=== PATIENT | female | born 1985 | race Caucasian/White ===

== ENCOUNTER 2024-07-26 14:43 | Outpatient (AMB) | payer MEDICAID, SELFPAY ==
--- NOTE | 2024-07-26 14:46 | MHC.OFFVIS ---
Vital Signs 07/26/24 14:47 Height 5 ft 7 in Weight 137 lb 2.04 oz BMI 21.5 BP 99/58 L Blood Pressure Location Lt brachial Position Sitting Pulse 73 Pulse Source Pulse Oximeter Pulse Oximetry (%) 97 Oxygen Delivery Method Room Air Intake Visit Reasons: multiple joint pain Intake Note: Patient presents today as a new patient externally referred by her PCP for multiple joint pain. She states it's been 9 months, she states she has tried just about everything to deal with the pain. Allergies gluten Allergy (Mild, Verified 07/26/24 14:51) celiac disease Latex, Natural Rubber Allergy (Mild, Verified 07/26/24 14:51) Rash povidone-iodine [From Betadine] Allergy (Mild, Verified 07/26/24 14:51) swelling skin, hives wheat Allergy (Mild, Verified 07/26/24 14:51) celiac Medication List - Last Reconciled 07/26/24 by Yessica Brooks MD albuterol sulfate 90 mcg/actuation (Ventolin HFA) 2 puffs inhalation Q6H PRN gabapentin 100 mg PO TID triamcinolone acetonide 0.1% 1 appl topical DAILY HPI Comments Details: Patient is a 38-year-old female with history of celiac disease managed with gluten free diet and eczema who presents for evaluation of polyarthralgias. 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 She reports that over the past year and a half she has been noticing that her recovery post exercise has been longer. She would wake up with pain and stiffness in her back (really extending from the cervical spine all the way down to the sacroiliac region). The pain would sometimes wake her up in the middle of the night. This has not been associated with episodes of dactylitis or enthesitis. No nail changes. No history of psoriasis. No history of inflammatory bowel disease such as UC or Crohn's. In addition to her back pain she has been noticing overwhelming fatigue. She does note that when she exercises pain does improve but she feels that after the exercise when she is at rest the pain returns. In the morning she feels that she is so stiff that it takes her at least an hour to get up and going. Denies rashes, photosensitivity, alopecia, oral/nasal ulcers, sicca symptoms, lymphadenopathy, chest pain/shortness of breath, foamy urine, lower extremity edema, muscle weakness Also denies history of seizure, CVA, psychosis, history of kidney problems, history of cytopenias, history of VTE Has 2 children. No history of miscarriages. No history of preeclampsia FOR[facility] Medical History (Updated 07/26/24 @ 16:16 by Yessica Brooks MD) MICHELE positive Spondylarthritis Breast lump Acute severe exacerbation of moderate persistent allergic asthma COVID Basal cell carcinoma Lateral epicondylitis of right elbow Pain in right knee Lymphadenopathy Mass of neck Fatigue Foot pain Backache Low back pain Acne Eczema Celiac disease Asthma Allergic rhinitis Acute bronchitis Visual impairment Insomnia Hyperlipidemia Squamous cell carcinoma of skin Malignant melanoma Family History (Updated 07/25/24 @ 14:00 by Cristina Stein CMA) Mother Essential (primary) hypertension Hypercholesterolemia Kidney disease Hip pain, bilateral Father Disorder of thyroid gland Hip pain, bilateral FH: prostate carcinoma Social History (Updated 07/25/24 @ 14:01 by Cristina Stein CMA) Patient Tobacco Use Status: Never used Tobacco Review of Systems Const Details: Review of Systems Constitutional: Denies fever, chills, weight loss ENT: Denies vision changes, eye pain or eye redness, dental caries, dry mouth GI: Denies nausea, vomiting, diarrhea, abdominal pain, change in BM Pulm: Denies SOB, TIDWELL, hemoptysis, wheezing Cards: Denies chest pain, palpitations Skin: Denies Raynaud's, rash, nail changes, photosensitivity, 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 ?Gait normal. Constitutional Mucous membranes pink and moist patient alert and cooperative HEENT Conjunctiva and sclera clear. ?Pupils equal round and reactive to light. ?No lymphadenopathy. ?Normal dentition. Respiratory System Normal respiratory effort and able to speak in complete sentences. ?Clear to auscultation bilaterally. ?No crackles, rales, rhonchi, wheezes heard. Cardiac System Regular rate and rhythm. ?S1 and S2 heard no murmurs. ?Radial pulses intact bilaterally MSK No deformity, swelling, abnormalities noted to bilateral hands. ?No evidence of synovitis. ?Able to move all joints with full range of motion, without limitation. Hands:.??Normal pain-free range of motion without tenderness, swelling, increased warmth or erythema. 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 Wrists: Normal pain-free range of motion without tenderness, swelling, increased warmth or erythema. Elbows: Full range of motion without pain. No tenderness, weakness, swelling, increased warmth or erythema. Shoulders: Full range of motion without pain. No tenderness, weakness, swelling, increased warmth or erythema. Hips: Full range of motion without pain. Hip bursa:.??No tenderness. Knees:.???Normal pain-free range of motion without tenderness, swelling, increased warmth or erythema.?No effusion or crepitations Ankles:.??Normal pain-free range of motion without tenderness, swelling, increased warmth or erythema. Feet:.??Normal pain-free range of motion without tenderness, swelling, increased warmth or erythema. Tender points:??No tenderness to digital palpation at the occiput, trapezius, second rib, lateral epicondyle, knees, greater trochanter bilaterally, and left gluteal. Yoav's test 10 -> 14 Normal wall to occiput test Skin Normal nail fold capillaries Eczematous patch noted over the lateral left elbow Results Reviewed Results Reviewed: Results reviewed in the scanned document. 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 Of note she did check an HLA B27 with her primary and this was negative, however HLA B27 positivity is not universal in axial spondyloarthritis. Also against this would be the normal ESR and CRP. We will give her a trial of naproxen 500 mg b.i.d. for 6 weeks and we will see her back in 4 weeks. We will also check SI joint x-rays and an MRI of her SI joints. Given her history of celiac disease I would think that it is possible that she has another autoimmune disease. We will also send full lab workup. To see patient again in 4 weeks. (2) MICHELE positive: Code(s): R76.8 - Other specified abnormal immunological findings in serum Category: Medical Plan: #Positive MICHELE The presence of antinuclear antibodies (MICHELE) is mainly associated with connective tissue diseases (CTD). ?However, their presence is found in healthy people especially in women and patients >65. ?In healthy individuals, the frequency of MICHELE has been shown to be 31.7% of individuals at 1:40 serum dilution, 13.3% at 1:80, 5.0% at 1:160, and 3.3% at 1:320 (2). Some drugs and xenobiotics are also important for the development of MICHELE (hydralazine, hydrochlorothiazide, minocycline, terbinafine, ciprofloxacin, furosemide, omeprazole). Moreover, the deficiency of vitamin D in the body of patients correlates with occurrence of these antibodies (1). At this time there is low suspicion for a connective tissue disease. ? 1. Sandra?yu Lee, Yaniv Velez, Praneeth Kuhn. Antinuclear antibodies in healthy people and non-rheumatic diseases - diagnostic and clinical implications. Reumatologia. 2018;56(4):243-248. doi: 10.5114/reum.2018.42084. Epub 2017Jun 04. PMID: [id number]; PMCID: [id number]. 2. Joseph EM, Anushka TE, Taisha JS, Chang B, Ruben R, Magali MJ, Helder T, Fili JA, Demian JR, Naomie RG, Azam RN, Tony JS, Hans NF, Francesco RJ, Velvet Y, Taylor A, Ruperto MR, Sharif TSANG. Range of antinuclear antibodies in healthy individuals. Arthritis Rheum. 1996;40(9):1601-11. doi: 10.1002/art.1348165854. PMID: 7874235. Plan I spent 45 minutes reviewing the record and labs, seeing the patient, discussing the treatment plan and documenting in the medical record ? For next visit: Review labs and imaging Orders: Orders C Reactive Protein Today M19.90 - Unspecified osteoarthritis, unspecified site, M47.819 - Spondylosis without myelopathy or radiculopathy, site unspecified Vitamin D 25-OH (D2 and D3) Today M19.90 - Unspecified osteoarthritis, unspecified site, M47.819 - Spondylosis without myelopathy or radiculopathy, site unspecified Immunoglobulins,IgG IgA IgM Today M1.90 - Unspecified osteoarthritis, unspecified site, M47.819 - Spondylosis without myelopathy or radiculopathy, site unspecified Complement C4 Today M19.90 - Unspecified osteoarthritis, unspecified site, M47.819 - Spondylosis without myelopathy or radiculopathy, site unspecified MICHELE Reflex Titer and Pattern Today M1. - Unspecified osteoarthritis, unspecified site, M47.819 - Spondylosis without myelopathy or radiculopathy, site unspecified UA w Microscopic Today M1. - Unspecified osteoarthritis, unspecified site, M47.819 - Spondylosis without myelopathy or radiculopathy, site unspecified Lyme IgG/IgM w/reflex to WB Today M19.90 - Unspecified osteoarthritis, unspecified site, M47.819 - Spondylosis without myelopathy or radiculopathy, site unspecified Thyroid Peroxidase Antibodies Today M1.90 - Unspecified osteoarthritis, unspecified site, M47.819 - Spondylosis without myelopathy or radiculopathy, site unspecified Rheumatoid Factor Today . - Unspecified osteoarthritis, unspecified site, M47.819 - Spondylosis without myelopathy or radiculopathy, site unspecified Creatine Kinase Total Today M1.90 - Unspecified osteoarthritis, unspecified site, M47.819 - Spondylosis without myelopathy or radiculopathy, site unspecified XR sacroiliac joint min 3V Today M1.90 - Unspecified osteoarthritis, unspecified site, M47.819 - Spondylosis without myelopathy or radiculopathy, site unspecified XR hand wrist LT Today M1. - Unspecified osteoarthritis, unspecified site, M47.819 - Spondylosis without myelopathy or radiculopathy, site unspecified MR pelvis wo con Today M1.90 - Unspecified osteoarthritis, unspecified site, M47.819 - Spondylosis without myelopathy or radiculopathy, site unspecified HLA B27 Today M1.90 - Unspecified osteoarthritis, unspecified site, M47.819 - Spondylosis without myelopathy or radiculopathy, site unspecified Beta-2 Glycoprotein Antibody Today - Unspecified osteoarthritis, unspecified site, M47.819 - Spondylosis without myelopathy or radiculopathy, site unspecified Lupus Anticoagulant Panel Today . - Unspecified osteoarthritis, unspecified site, M47.819 - Spondylosis without myelopathy or radiculopathy, site unspecified Endomysial IgA rflx Titer Today - Unspecified osteoarthritis, unspecified site, M47.819 - Spondylosis without myelopathy or radiculopathy, site unspecified Transglutaminase Ab IgG Today - Unspecified osteoarthritis, unspecified site, M47.819 - Spondylosis without myelopathy or radiculopathy, site unspecified Complete Blood Count Auto Diff Today - Unspecified osteoarthritis, unspecified site, M47.819 - Spondylosis without myelopathy or radiculopathy, site unspecified Comprehensive Met. Panel Today - Unspecified osteoarthritis, unspecified site, M47.819 - Spondylosis without myelopathy or radiculopathy, site unspecified Erythrocyte Sedimentation Rate Today . - Unspecified osteoarthritis, unspecified site, M47.819 - Spondylosis without myelopathy or radiculopathy, site unspecified Protein Electrophoresis, Serum Today - Unspecified osteoarthritis, unspecified site, M47.819 - Spondylosis without myelopathy or radiculopathy, site unspecified Thyroid Stimulating Hormone Today . - Unspecified osteoarthritis, unspecified site, M47.819 - Spondylosis without myelopathy or radiculopathy, site unspecified Complement C3 Today - Unspecified osteoarthritis, unspecified site, M47.819 - Spondylosis without myelopathy or radiculopathy, site unspecified Anti DNA DS Antibody Today - Unspecified osteoarthritis, unspecified site, M47.819 - Spondylosis without myelopathy or radiculopathy, site unspecified Anti Extractable Nuclear Ag Today M19.90 - Unspecified osteoarthritis, unspecified site, M47.819 - Spondylosis without myelopathy or radiculopathy, site unspecified Thyroglobulin Antibodies Today M19.90 - Unspecified osteoarthritis, unspecified site, M47.819 - Spondylosis without myelopathy or radiculopathy, site unspecified MSA Panel 11 Myositis Spec Abs Today M19.90 - Unspecified osteoarthritis, unspecified site, M47.819 - Spondylosis without myelopathy or radiculopathy, site unspecified Cyclic Citrullinated Peptide Today M19.90 - Unspecified osteoarthritis, unspecified site, M47.819 - Spondylosis without myelopathy or radiculopathy, site unspecified Aldolase Today M19.90 - Unspecified osteoarthritis, unspecified site, M47.819 - Spondylosis without myelopathy or radiculopathy, site unspecified XR hand wrist RT Today M19.90 - Unspecified osteoarthritis, unspecified site, M47.819 - Spondylosis without myelopathy or radiculopathy, site unspecified Cardiolipin Antibodies Today M19.90 - Unspecified osteoarthritis, unspecified site, M47.819 - Spondylosis without myelopathy or radiculopathy, site unspecified Medications: New naproxen 500 mg PO BID 6 weeks 84 tabs 0RF M47.819 - Spondylosis without myelopathy or radiculopathy, site unspecified Coding Level of Care Code New Pt Level 4 (18286) Complex EM visit Add On G2211 Diagnoses Spondylarthritis M47.819 MICHELE positive R76.8
[2024-07-26 14:47] VITALS: BP 99/58; PULSE 73; O2SAT 97; BMI 21.5
== END 2024-07-26 15:58 | disposition home or self-care (01) ==
PROVIDERS: PCP Internal Medicine; Visit Provider Student in an Organized Health Care Education/Training Program
DX: M47.819 Spondylosis without myelopathy or radiculopathy, site unspecified (principal); R76.8 Other specified abnormal immunological findings in serum
CPT/HCPCS: 99204

== ENCOUNTER → 2024-07-26 14:43 | Outpatient (BNVA) | payer MEDICAID, SELFPAY | PROVIDERS: PCP Internal Medicine; Visit Provider Student in an Organized Health Care Education/Training Program | DX: R76.8 Other specified abnormal immunological findings in serum (principal); M47.819 Spondylosis without myelopathy or radiculopathy, site unspecified | CPT/HCPCS: 99202 ==

== ENCOUNTER 2024-08-07 18:39 | Outpatient (REF) | payer MEDICAID, SELFPAY ==
--- NOTE | ~2024-08-07 | MR_ITS ---
EXAMINATION: MR PELVIS WITH CONTRAST CLINICAL INFORMATION: Unspecified osteoarthritis. Patient reports back pain. COMPARISON: None available. TECHNIQUE: MRI in a 1.5 Marni scanner without contrast. FINDINGS: Bone/joints: Bilateral femoral heads are well-seated in the acetabulum. No evidence of acute fracture, avascular necrosis or stress reaction in the proximal femurs. SI joint spaces are maintained. No evidence of significant edema or cystic changes. No joint effusion. No erosive changes identified. No evidence of significant sacral edema to suggest stress or insufficiency injury. No focal fracture plane is seen. No acute fracture is otherwise identified in the visualized pelvis. Symphysis pubis is intact. There is a round 0.9 cm lesion in the S1 vertebral body. Margins are well-defined. Lesion is bright on T2, with punctate foci of low signal within it. Low T1 signal. No surrounding marrow edema. This overall has a nonaggressive appearance. Differential considerations include chondroid lesion. Marrow signal otherwise is within normal limits. Limited evaluation of the partially visualized lower lumbar spine. The vertebral body alignment is maintained. Disc spaces are maintained. Muscle/tendons: Tendons are intact. No significant muscle edema or measurable tear is identified. Additional findings: No lymphadenopathy seen in the pelvis or the groin. Urinary bladder appears unremarkable. Anteverted uterus. Within normal limits. No free fluid. MR/MR pelvis wo con IMPRESSION: 1. No evidence of acute osseous abnormality. No evidence of fracture, avascular necrosis or stress reaction. 2. Bilateral SI joints appear within normal limits. 3. A 0.9 cm lesion in the S1 vertebral body, with imaging characteristics as detailed above. This overall has a nonaggressive appearance. Differential considerations include a chondroid lesion. Correlate with x-ray. Follow-up imaging for reassessment as clinically indicated. Study is assigned for dictation on September 07, [address] Brooks at 1:10 PM on September 07, 2024 Electronically signed by: Andrew Blank MD 09/07/2024 01:14 PM [facility]
== END 2024-08-07 18:40 | disposition home or self-care (01) ==
LOC: HO.MRI 18:39
PROVIDERS: PCP Internal Medicine; Visit Provider Student in an Organized Health Care Education/Training Program
DX: M19.90 Unspecified osteoarthritis, unspecified site (principal); M47.819 Spondylosis without myelopathy or radiculopathy, site unspecified
CPT/HCPCS: 72195

== ENCOUNTER 2024-08-10 12:42 | Outpatient (REF) | payer MEDICAID, SELFPAY ==
[2024-08-10 13:21] LABS: MANUAL DIFF FLAG NO
[2024-08-10 13:52] LABS: Appearance Urine Turbid; Color Urine Yellow; Glucose Urine UA Negative (Negative); Leukocyte Esterase Urine Moderate (2+) (Negative); Nitrite Urine Negative (Negative); UMIC TRIGGER UA YES; Urine Blood Trace (Negative); Urine Ketones Negative (Negative); Urine Protein Negative (Neg-Trace)
[2024-08-10 14:03] LABS: Bacteria Urine 1+ (None Seen); Hyaline Casts Urine 0-2 /LPF (0-2); Other Crystals Urine Present; RBC Urine 0-2 /HPF (0-2); WBC Urine 0-5 /HPF (0-5)
[2024-08-10 14:21] LABS: Basophils Absolute Auto 0.1 X10*3/uL (0.0-0.2); Basophils Percent Auto 0.9 % (0-2); Eosinophils Absolute Auto 0.2 X10*3/uL (0.0-0.4); Eosinophils Percent Auto 1.7 % (0-4); Hematocrit 43.7 % (37.0-47.0); Imm Gran Abs Auto 0.01 X10*3/uL (0.00-0.03); Imm Gran Pct Auto 0.1 % (0.0-0.4); Lymphocytes Absolute Auto 2.1 X10*3/uL (1.2-4.9); Lymphocytes Percent Auto 24.4 % (20-40); Mean Corpuscular HGB Conc 34.3 g/dl (31.0-35.0); Mean Corpuscular Hemoglobin 30.1 pg (27.0-33.0); Mean Corpuscular Volume 87.8 fL (80.0-98.0); Mean Platelet Volume 10.1 fL (9.4-12.3); Monocytes Absolute Auto 0.5 X10*3/uL (0.1-1.2); Monocytes Percent Auto 6.1 % (2-11); Neutrophils Absolute Auto 5.7 x10*3/uL (2.0-8.3); Neutrophils Percent Auto 66.8 % (45-73); Platelet Count 204 X10*3/uL (160-400); Red Blood Count 4.98 X10*6/uL (4.20-5.50); Red Cell Distribution Width 11.9 % (11.0-16.0); White Blood Count 8.6 X10*3/uL (4.8-10.8)
[2024-08-10 14:32] LABS: Alanine Aminotransferase 30 U/L (0-31); Alkaline Phosphatase 66 U/L (39-117); Anion Gap 12 (12-20); Aspartate Amino Transferase 27 U/L (5-31); Bilirubin Total 0.3 mg/dL (0.0-1.0); Blood Urea Nitrogen 21 mg/dL (9-16); C Reactive Protein < 0.10 mg/dL (< or = 0.50); Calcium 10.2 mg/dL (8.4-10.2); Carbon Dioxide 29 mmol/L (22-29); Chloride 103 mmol/L (96-108); Estimated Glomerular Filt Rate > 60; Glucose Random 98 mg/dL (60-115); Potassium 3.9 mmol/L (3.3-5.1); Sodium 140 mmol/L (135-145); Total Protein 7.8 g/dL (6.5-8.0)
[2024-08-10 14:38] LABS: Rheumatoid Factor < 13.0 IU/mL (<15.0)
[2024-08-10 14:45] LABS: Thyroid Stimulating Hormone 1.18 uIU/mL (0.32-4.0)
[2024-08-10 14:57] LABS: Erythrocyte Sedimentation Rate 2 MM/HR (0-20)
[2024-08-11 10:48] LABS: Complement C3 109 mg/dL (83-193); IgA 125 mg/dL (47-310); IgG 880 mg/dL (600-1640); IgM 158 mg/dL (50-300)
[2024-08-11 11:29] LABS: Thyroglobulin Antibodies <1 IU/mL (< or = 1); Thyroid Peroxidase Antibodies 1 IU/mL (<9)
[2024-08-11 16:23] LABS: Lyme Abs Screen <0.90 index
[2024-08-11 20:24] LABS: Transglutaminase Ab IgG <1.0 U/mL
[2024-08-12 09:43] LABS: Prot Elec - Albumin 5.2 g/dL (3.8-4.8); Prot Elec - Alpha1 0.3 g/dL (0.2-0.3); Prot Elec - Alpha2 0.6 g/dL (0.5-0.9); Prot Elec - Beta 1 0.4 g/dL (0.4-0.6); Prot Elec - Beta 2 0.3 g/dL (0.2-0.5); Prot Elec - Gamma 0.8 g/dL (0.8-1.7); Prot Elec - Total Protein 7.5 g/dL (6.1-8.1)
[2024-08-12 21:32] LABS: Anti DNA DS Antibody <1 IU/mL; SM/Ribonucleoprotein Ab <1.0 NEG AI (<1.0 NEG); Smith Protein <1.0 NEG AI (<1.0 NEG)
[2024-08-12 22:28] LABS: Cyclic Citrullinated Peptide <16 UNITS
[2024-08-13 23:38] LABS: Endomysial IgA Antibody Negative (Negative)
[2024-08-14 13:39] LABS: Hexagonal Phase Neutralization Negative (Negative); PTT (LAC) Screen 43 sec (<=40)
[2024-08-15 10:43] LABS: Cardiolipin IgG Ab <2.0 GPL-U/mL; Cardiolipin IgM Ab <2.0 MPL-U/mL
[2024-08-15 14:43] LABS: Vitamin D 25-OH, D2 5 ng/mL; Vitamin D 25-OH, D3 33 ng/mL; Vitamin D 25-OH, Total 38 ng/mL (30-100)
[2024-08-16 02:19] LABS: Aldolase 5.1 U/L (<=8.1)
[2024-08-16 12:38] LABS: HLA B27 Negative (Negative)
[2024-08-16 14:58] LABS: ANA Pattern 2 Nuclear, Homogeneous; ANA Titer 2 1:40 titer; Anti Nuclear Antibody Pattern Nuclear, Nucleolar; Anti Nuclear Antibody Screen POSITIVE (NEGATIVE)
[2024-08-17 17:19] LABS: Beta-2 Glycoprotein IgA <2.0 U/mL (<20.0); Beta-2 Glycoprotein IgG <2.0 U/mL (<20.0); Beta-2 Glycoprotein IgM <2.0 U/mL (<20.0)
[2024-08-18 02:53] LABS: Ej Ab <11 SI (<11); Jo-1 Ab <11 SI (<11); MDA5 Ab <11 SI (<11); Mi-2 alpha Ab <11 SI (<11); Mi-2 beta Ab <11 SI (<11); NXP-2 (MJ) Ab <11 SI (<11); Oj Ab <11 SI (<11); Pl-12 Ab <11 SI (<11); Pl-7 Ab <11 SI (<11); SRP Ab <11 SI (<11); TIF1 gamma Ab <11 SI (<11)
== END 2024-08-10 12:43 | disposition home or self-care (01) ==
LOC: HO.LAB 12:42
PROVIDERS: Visit Provider Student in an Organized Health Care Education/Training Program
DX: M19.90 Unspecified osteoarthritis, unspecified site (principal); M47.819 Spondylosis without myelopathy or radiculopathy, site unspecified
CPT/HCPCS: 36415; 72202; 73110; 73130; 80053; 81001; 82085; 82306; 82550; 82784; 84165; 84182; 84443; 85025; 85597; 85598; 85613; 85652; 85730; 86038; 86039; 86140; 86146; 86147; 86160; 86200; 86225; 86231; 86235; 86364; 86376; 86431; 86617; 86618; 86800; 86812

== ENCOUNTER 2024-09-07 11:46 | Outpatient (AMB) | payer MEDICAID, SELFPAY ==
[2024-09-07 11:49] VITALS: BP 98/58; PULSE 72; BMI 21.4
--- NOTE | 2024-09-07 11:49 | A.OFFVIS_ITS ---
Vital Signs 09/07/24 11:49 Height 5 ft 7 in Weight 136 lb 14.513 oz BMI 21.4 BP 98/58 L Blood Pressure Location Rt brachial Position Sitting Pulse 72 Pulse Source Pulse Oximeter Intake Visit Reasons: multiple joint pain/CM Intake Note: Patient present today for multiple joint pain. [employer] Officer Required: No Accompanied by: Self / Same As Patient Allergies gluten Allergy (Mild, Verified 07/26/24 14:51) celiac disease Latex, Natural Rubber Allergy (Mild, Verified 07/26/24 14:51) Rash povidone-iodine [From Betadine] Allergy (Mild, Verified 07/26/24 14:51) swelling skin, hives wheat Allergy (Mild, Verified 07/26/24 14:51) celiac Medication List - Last Reconciled 09/07/24 by Yessica Brooks MD albuterol sulfate 90 mcg/actuation (Ventolin HFA) 2 puffs inhalation Q6H PRN gabapentin 300 mg PO TID naproxen 500 mg PO BID 6 weeks triamcinolone acetonide 0.1% 1 appl topical DAILY HPI Comments Details: Patient is a 38-year-old female with history of celiac disease managed with gluten free diet and eczema who presents for follow up Interval History: Patient initially seen 08/10/2024 by me. At that time she was presenting for evaluation of polyarthralgias specifically back pain. 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 and sent to do blood work and imaging. Blood work including ESR/CRP, HLA B27, x-rays and MRI were unremarkable for evidence of inflammation Today patient reports feeling lousy. The naproxen helped to ?take the edge off? however she persisted in her pain. Continues to complain of whole-body pain but specifically her back pain. 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 She reports that over the past year and a half she has been noticing that her recovery post exercise has been longer. She would wake up with pain and stiffness in her back (really extending from the cervical spine all the way down to the sacroiliac region). The pain would sometimes wake her up in the middle of the night. This has not been associated with episodes of dactylitis or enthesitis. No nail changes. No history of psoriasis. No history of inflammatory bowel disease such as UC or Crohn's. In addition to her back pain she has been noticing overwhelming fatigue. She does note that when she exercises pain does improve but she feels that after the exercise when she is at rest the pain returns. In the morning she feels that she is so stiff that it takes her at least an hour to get up and going. Denies rashes, photosensitivity, alopecia, oral/nasal ulcers, sicca symptoms, lymphadenopathy, chest pain/shortness of breath, foamy urine, lower extremity edema, muscle weakness Also denies history of seizure, CVA, psychosis, history of kidney problems, history of cytopenias, history of VTE Has 2 children. No history of miscarriages. No history of preeclampsia Working Diagnosis: Fibromyalgia Current Rheumatology Medication(s): Naproxen 500mg bid Gabapentin 300mg nightly [facility] Medical History (Updated 09/07/24 @ 14:06 by Yessica Brooks MD) Sacral lesion Greater trochanteric bursitis of both hips Fibromyalgia MICHELE positive Breast lump Acute severe exacerbation of moderate persistent allergic asthma COVID Basal cell carcinoma Lateral epicondylitis of right elbow Pain in right knee Lymphadenopathy Mass of neck Fatigue Foot pain Backache Low back pain Acne Eczema Celiac disease Asthma Allergic rhinitis Acute bronchitis Visual impairment Insomnia Hyperlipidemia Squamous cell carcinoma of skin Malignant melanoma Family History Mother Essential (primary) hypertension Hypercholesterolemia Kidney disease Hip pain, bilateral Father Disorder of thyroid gland Hip pain, bilateral FH: prostate carcinoma Social History Patient Tobacco Use Status: Never used Tobacco Review of Systems Const Details: Review of Systems Constitutional: Denies fever, chills, weight loss ENT: Denies vision changes, eye pain or eye redness, dental caries, dry mouth GI: Denies nausea, vomiting, diarrhea, abdominal pain, change in BM Pulm: Denies SOB, TIDWELL, hemoptysis, wheezing Cards: Denies chest pain, palpitations Skin: Denies Raynaud's, rash, nail changes, photosensitivity, [employer] ASSOCIATE: Denies headaches, weakness, paresthesias, recurrent falls MSK: as per HPI All other systems reviewed and are unremarkable except noted above Physical Exam Vital Signs: Last Vital Signs Pulse 72 09/07/24 11:49 BP 98/58 L 09/07/24 11:49 BMI result Body Mass Index 21.4 Physical Examination Patient well appearing and in no apparent painful distress Able to rise from chair without support. ?Gait normal. Constitutional Mucous membranes pink and moist patient alert and cooperative HEENT Conjunctiva and sclera clear. ?Pupils equal round and reactive to light. ?No lymphadenopathy. ?Normal dentition. Respiratory System Normal respiratory effort and able to speak in complete sentences. ?Clear to auscultation bilaterally. ?No crackles, rales, rhonchi, wheezes heard. Cardiac System Regular rate and rhythm. ?S1 and S2 heard no murmurs. ?Radial pulses intact bilaterally MSK No deformity, swelling, abnormalities noted to bilateral hands. ?No evidence of synovitis. ?Able to move all joints with full range of motion, without limitation. Hands:.??Normal pain-free range of motion without tenderness, swelling, increased warmth or erythema. Able to make a full fist and has a good self pay specialist strength. Wrists: Normal pain-free range of motion without tenderness, swelling, increased warmth or erythema. Elbows: Full range of motion without pain. No tenderness, weakness, swelling, increased warmth or erythema. Shoulders: Full range of motion without pain. No tenderness, weakness, swelling, increased warmth or erythema. Hips: Full range of motion without pain. Hip bursa:.??Bilateral tenderness to palpation Knees:.???Normal pain-free range of motion without tenderness, swelling, increased warmth or erythema.?No effusion or crepitations Ankles:.??Normal pain-free range of motion without tenderness, swelling, increased warmth or erythema. Feet:.??Normal pain-free range of motion without tenderness, swelling, increased warmth or erythema. Tender points:??Tenderness to palpation of the bilateral trapezius muscles, anterior chest, bilateral hip bursa. Skin No rash Office Procedures AMB Joint Injection/Aspiration Joint Injection/Aspiration Details: Procedure was explained to the patient and consent was obtained. ? The area of interest was identified and confirmed with patient. ?This was subsequently cleaned with chlorhexidine x3. ? The area was then anesthetized using ethyl chloride spray. 40 mg Kenalog with 1 cc 1% lidocaine was injected without issue. ?Minimal to no bleeding. ?Patient tolerated procedure. Primary Site: other (right greater trochanteric bursa) Prep: site was prepped using aseptic technique and ethochloride spray was applied Injected: 40 mg of, Kenalog, with 1 mL of and 1% plain lidocaine Approach Used: other Procedure: The patient tolerated the procedure well Coding 04961 - Glenohumeral/Tronchanteric Bursa/Intraarticular Procedure code (CPT) selection complete AMB Joint Injection/Aspiration Joint Injection/Aspiration Details: Procedure was explained to the patient and consent was obtained. ? The area of interest was identified and confirmed with patient. ?This was subsequently cleaned with chlorhexidine x3. ? The area was then anesthetized using ethyl chloride spray. 40 mg Kenalog with 1 cc 1% lidocaine was injected without issue. ?Minimal to no bleeding. ?Patient tolerated procedure. Primary Site: other (left greater trochanteric bursa) Prep: site was prepped using aseptic technique and site was prepped using sterile technique Injected: 40 mg of, Kenalog, with 1 mL of and 1% plain lidocaine Approach Used: other Procedure: The patient tolerated the procedure well Coding 69693 - Glenohumeral/Tronchanteric Bursa/Intraarticular Procedure code (CPT) selection complete Office Meds Kenalog 40 mg/mL suspension for injection Performing Provider: Yessica Brooks MD Performing Location: [facility] [place] Rheumatology Administered by: Yessica Brooks MD on 09/07/24 14:08 Dose Route Admin Location Dispensed Lot Number Expiration Date [facility] [employer] 40 mg intra-articular right greater trochanter 1 mL [id number] 04/04/26 [address]-0 [employer] lidocaine (PF) 10 mg/mL (1 %) injection solution Performing Provider: Yessica Brooks MD Performing Location: [facility] [place] Rheumatology Administered by: Yessica Brooks MD on 09/07/24 14:08 Dose Route Admin Location Dispensed Lot Number Expiration Date [facility] [employer] 10 mg Infiltration right greater trochanter 2 mL [id number] 01/03/27 28994-136-21 [facility] Kenalog 40 mg/mL suspension for injection Performing Provider: Yessica Brooks MD Performing Location: [facility] [place] Rheumatology Administered by: Yessica Brooks MD on 09/07/24 14:08 Dose Route Admin Location Dispensed Lot Number Expiration Date [facility] [employer] 40 mg intrabursal left greater trochanter 1 mL [id number] 04/04/26 [address]-7 [employer] lidocaine (PF) 10 mg/mL (1 %) injection solution Performing Provider: Yessica Brooks MD Performing Location: [facility] [place] Rheumatology Administered by: Yessica Brooks MD on 09/07/24 14:08 Dose Route Admin Location Dispensed Lot Number Expiration Date [facility] [employer] 10 mg Infiltration left greater trochanter 2 mL [id number] 01/03/27 15902-167-98 [facility] Results Reviewed Results Reviewed: Laboratory Tests 08/10/24 13:15 WBC 8.6 RBC 4.98 Hgb 15.0 Hct 43.7 Plt Count 204 ESR 2 Sodium 140 Potassium 3.9 Chloride 103 Carbon Dioxide 29 BUN 21 H Creatinine 0.74 AST 27 ALT 30 Alkaline Phosphatase 66 Total Creatine Kinase 142 H C-Reactive Protein < 0.10 25-OH Vitamin D Total 38 TSH 1.18 IgG Total 880 IgA Total 125 IgM 158 Rheumatoid Factor < 13.0 Cycl Citrul Peptide IgG <16 MICHELE Screen POSITIVE A MICHELE Titer 1:80 H MICHELE Pattern Nuclear, Nucleolar A TREVOR-1 Antibody <11 EJ Antibody <11 OJ Antibody <11 Mi-2-Alpha Ab <11 Mi-2-Beta Ab <11 PL-7 Antibody <11 PL-12 Antibody <11 SRP Ab <11 MDA5 Ab <11 Myos P155/140 TIF1-g Ab <11 Sm (Rodriguez) Antibody <1.0 NEG SM/FASHION MODEL IgG Antibody <1.0 NEG Double Strand DNA Ab <1 Beta-2-GPI IgG Ab <2.0 Beta-2-GPI IgA Ab <2.0 Beta-2-GPI IgM Ab <2.0 Endomysial IgA Ab Negative Tiss Transglutamin IgG <1.0 Thyroglobulin Antibody <1 Thyroid Peroxidase Ab 1 Anti-Cardiolipin IgG Ab <2.0 Anti-Cardiolipin IgM Ab <2.0 Complement C3 109 Complement C4 18 HLA-B27 Negative Lyme Screen IgG & IgM <0.90 MRI Pelvis 08/07/24 IMPRESSION: 1. No evidence of acute osseous abnormality. No evidence of fracture, avascular necrosis or stress reaction. 2. Bilateral SI joints appear within normal limits. 3. A 0.9 cm lesion in the S1 vertebral body, with imaging characteristics as detailed above. This overall has a nonaggressive appearance. Differential considerations include a chondroid lesion. Correlate with x-ray. Follow-up imaging for reassessment as clinically indicated. Bilateral Hand/Wrist XR 08/10/24 (My read) No evidence of erosions, joint space narrowing or chondrocalcinosis SI Joint XR 08/10/24 (My read) No evidence of erosions or joint space narrowing Assessment & Plan Assessment & Plan (1) Fibromyalgia: Code(s): M79.7 - Fibromyalgia Category: Medical Plan: #Fibromyalgia Patient presented with polyarthralgias. Evaluation did not reveal an underlying autoimmune cause with normal ESR/CRP, negative myositis panel, negative HLA B27, normal APS labs While she does not have the traditional tender points, she does meet the ACR preliminary diagnostic criteria for fibromyalgia (1) - Widespread pain index >7 and somatic score> 5 Plan Increase gabapentin 300mg tid Stop naproxen Gave Fibromyalgia pamphlet Discussed non pharmacologic management including stretches and regular exercise RTC 6 months 1. Ayaka F, Rima DJ, Vipin MA, Toan DL, H?mele W, Tete RS, Estefani P, Magno , Magno IJ, Chava MEGHANN. Fibromyalgia criteria and severity scales for clinical and epidemiological studies: a modification of the ACR Preliminary Diagnostic Criteria for Fibromyalgia. J Rheumatol. 2011 Lucas;38(6):1113-22. doi: 10.3899/[id number]. Ep2010Nov 05. PMID: [id number]. (2) Greater trochanteric bursitis of both hips: Code(s): M70.61 - Trochanteric bursitis, right hip; M70.62 - Trochanteric bursitis, left hip Category: Medical Plan: #Bilateral trochanteric bursitis S/p cortisol injections bilateral (3) Sacral lesion: Code(s): M53.3 - Sacrococcygeal disorders, not elsewhere classified Category: Medical Plan: #New sacral lesion on MRI Discussed with radiologist at [facility]: benign appearing. Can follow up with CT. No evidence of bone marrow edema Discussed with patient, recommend follow up with primary for further imaging evaluation Plan I spent 40 minutes reviewing the record and labs, seeing the patient, discussing the treatment plan, discussing MRI with [facility] Dr. Baweja and documenting in the medical record ? Orders: Orders AMB Joint Injection/Aspiration Today M70.61 - Trochanteric bursitis, right hip, M70.62 - Trochanteric bursitis, left hip AMB Joint Injection/Aspiration Today M53.3 - Sacrococcygeal disorders, not elsewhere classified, M70.61 - Trochanteric bursitis, right hip, M70.62 - Trochanteric bursitis, left hip Medications: New gabapentin 300 mg PO TID 90 days 270 caps 1RF M79.7 - Fibromyalgia Coding Level of Care Code New Pt Level 5 (78590) Diagnoses Fibromyalgia M79.7 Greater trochanteric bursitis of both hips M70.61; M70.62 Sacral lesion M53.3 CPT Codes Coding - Joint 7: 39478 - Glenohumeral/Tronchanteric Bursa/Intraarticular ([id number]) Coding - Joint 7: 72566 - Glenohumeral/Tronchanteric Bursa/Intraarticular ([id number])
--- OUTSIDE RECORDS SUMMARY | 2024-09-13 18:18 | XMS_ITS | Data Portability ---
Author Organization [facility], Main Office Address [address] [place] [address] Care Team Providers Care Dukey Rider Name Role Phone GRACE ENGLE Primary Care Provider DAVON ABARCA Referring Provider [phone] [facility] (DERMATOLOGY) Derm atologist ISABELA REBOLLEDO Construction Rep [facility] Orthopedic Surgeon EVELIN RICH Referring Provider PAOLA LORENZANA Referring Provider GASPER PARNELL Referring Provider [phone] MELISSA MILLER Construction Rep Assessment Encounter Date Assessment Date Assessment LastModified by Organization Details LastModified Time 08/16/2024 08/16/2024 This service was provided using telemedicine. Patient consented to video & audio visit Patient was located in the [facility]. Provider was located in the office. No other persons participated in the telemedicine visit except for the patient unless otherwise indicated here. {{}} Total time of visit was 32 minutes. [email or web address] Not available 08/16/2024 14:03:51 Plan of Treatment Reminders Order Date Submit Date Provider Last Modified By Organization Details Last Modified Time Details Appointments None recorde d. Lab CMP, serum or plasma 2022 023 [email or web address], [address], [address], 09:06:21 lipid panel, serum 2022 023 [email or web address], [address], [address], [place], [address], 4 09:06:22 TSH, serum or plasma 2022 023 [email or web address], [address], [address], [place], [address], 4 09:06:21 T4, free, serum 2022 023 [facility], [address], [address], [place], [address], 3 13:48:25 CBC w/ auto diff 2022 023 [email or web address], [address], [address], [place], [address], 4 09:06:21 ESR (erythr ocyte sedimen tation rate), blood 2023 024 [facility], [address], [place], [address], 4 17:14:49 uric acid, serum or plasma 2023 024 [facility], [address], [place], [address], 4 17:14:48 rf (rheuma toid factor) , serum 2023 024 [facility], [address], [place], [address], 4 17:14:47 MICHELE (antinu clear antibod ies) screen, ifa, serum 2023 024 [facility], [address], [place], [address], 4 17:14:47 borreli a burgdor feri IgG + IgM + total panel, IA, serum 2023 024 [facility], [address], [place], [address], 4 17:14:48 unliste d lab - CRP+hla -B27 2023 024 [facility], [address], [place], [address], 4 17:14:46 HbA1c (hemogl obin A1c), blood 2023 024 [facility], [address], [address], [place], [address], 4 13:57:54 lipid panel, serum 2023 024 [facility], [address], [address], [place], [address], 4 13:57:38 TSH, ultra-s ensitiv e, serum 2023 024 [facility], [address], [address], [place], [address], 4 13:57:38 CMP, serum or plasma 2023 024 [facility], [address], [address], [place], [address], 4 13:57:54 CBC w/ auto diff 2023 024 [facility], [address], [address], [place], [address], 4 13:57:54 lipid panel, serum 2023 024 [facility], [address], [address], [place], [address], 4 12:19:58 Referral None recorde d. Procedures None recorde d. Surgeries None recorde d. Imaging MAMMO, diagnos tic, digital , bilater al - left breast lump, freely mobile, firm, about 3cm in size 3oclock positio n [address] [facility], [address], [address], [place], [address], 3 07:46:06 US, breast, unilate ral - left breast lump as above [address] [facility], [address], [address], [place], [address], 3 07:46:06 XR, lumbosa cral spine 2023 024 [facility], [address], [place], [address], 4 14:38:44 XR, thoraci c spine [address] [facility], [address], [place], [address], 4 11:19:11 XR, cervica l spine 2023 024 [facility], [address] [facility], [place], [address], 4 14:38:44 Medication Orders spirono lactone 50 mg tablet [address]/Pharmacy #[id number], [address], [place], [address], 3 13:13:56 zolpide m 10 mg tablet 2021 022 [facility]/Pharmacy #1297, [address], [place], [address], 4 16:38:02 prednis one 20 mg tablet 2022 024 [facility] [address], [place], [address], 4 15:53:27 albuter ol sulfate HFA 90 mcg/act uation aerosol inhaler 2022 023 [facility], [address], [place], [address], 3 13:46:57 zolpide m 10 mg tablet 2022 023 [facility] [address], [place], [address], 4 16:38:02 Zithrom ax Z-Todd 250 mg tablet 2022 023 [facility], [address], [place], [address], 4 15:52:54 Symbico rt 160 mcg-4.5 mcg/act uation HFA aerosol inhaler 2022 024 [facility] [address], [place], [address], 4 13:58:57 gabapen tin 100 mg capsule 2023 024 [facility]/Pharmacy #0517, [address] [place], [address], 4 16:43:24 gabapen tin 300 mg capsule 2023 024 [facility], [address], [place], [address], 4 13:57:37 Patient TargetsNo targets recorded. Patient Instructions Encounter Date Encounter Id Patient Instructions Last Modified By Organization Details Last Modified Time 09/03/2023 [id number] To call or retur n for worsening or concerns [email or web address] Not available 09/03/2023 13:22:57 05/02/2024 [id number] Patient will follow up and keep appointment as scheduled. pmadden Not available 05/02/2024 16:43:17 08/16/2024 [id number] take gabapentin at night x 3 nights, then twice daily x 3 days, then 3 times daily pmadden Not available 08/16/2024 13:53:36 Medications (OTC , herbal therapies, supplements) reviewed and reconciled with patient and or caregiver, including potential side effects, drug interactions, instructions, and the consequences of not taking medication. Reviewed potential barriers to medication adherence, such as side effects from medication or cost of medication. pmadden Not available 08/16/2024 13:53:45 09/08/2024 [id number] To call or retur n for worsening or concerns [email or web address] Not available 09/08/2024 12:31:56 Reason for Referral None Reported. Results Created Date Observation Date Name Description Value Unit Range Abnormal Flag Note LastModifiedBy Organization Detail LastModifiedTime 07/03/20 22 07/03/2022 COMPL ETE BLOOD COUNT WBC 7.4 K/mm3 (4.0-1 1.0) Not Available [facility] [address] [place], [address], 07/03/2022 17:27:55 07/03/20 22 07/03/2022 COMPL ETE BLOOD COUNT RBC 4.88 M/mm3 (4.20- 5.40) Not Available [facility] [address] [place], [address], 07/03/2022 17:27:55 07/03/20 22 07/03/2022 COMPL ETE BLOOD COUNT HGB 14.9 gm/dL (11.7- 15.5) Not Available [facility] [address] [place], [address], 07/03/2022 17:27:55 07/03/20 22 07/03/2022 COMPL ETE BLOOD COUNT HCT 44.2 % (35.7- 45.8) Not Available [facility] [address] [place], [address], 07/03/2022 17:27:55 07/03/20 22 07/03/2022 COMPL ETE BLOOD COUNT MCV 90.6 fL (80.0- 100.0) Not Available [facility] [address] [place], [address], 07/03/2022 17:27:55 07/03/20 22 07/03/2022 COMPL ETE BLOOD COUNT MCH 30.5 pg (27.0- 34.0) Not Available [facility] [address] [place], [address], 07/03/2022 17:27:55 07/03/20 22 07/03/2022 COMPL ETE BLOOD COUNT MCHC 33.7 g/dL (33.0- 37.0) Not Available [facility] [address] [place], [address], 07/03/2022 17:27:55 07/03/20 22 07/03/2022 COMPL ETE BLOOD COUNT plt 214 K/mm3 (150-4 60) Not Available [facility] [address] [place], [address], 07/03/2022 17:27:55 07/03/20 22 07/03/2022 COMPL ETE BLOOD COUNT RDW-SD 39.4 fL (<47.0 ) Not Available [facility] [address] [place], [address], 07/03/2022 17:27:55 07/03/20 22 07/03/2022 COMPL ETE BLOOD COUNT MPV 10.2 fL (9.4-1 2.4) Not Available [facility] [address], [address], 07/03/2022 17:27:55 07/03/20 22 07/03/2022 COMPL ETE BLOOD COUNT automated NRBC 0.0 #/100 _WBC' s Not Available [facility] [address] [place], [address], 07/03/2022 17:27:55 07/03/20 22 07/03/2022 COMPL ETE BLOOD COUNT abs. NRBC 0.0 K/mm3 Not Available [facility] [address] [place], [address], 07/03/2022 17:27:55 07/03/20 22 07/03/2022 COMPR EHENS PETER METAB OLIC PANL glucose 92 mg/dL (70-99 ) Not Available [facility] [address] [place], [address], 07/03/2022 18:54:56 07/03/20 22 07/03/2022 COMPR EHENS PETER METAB OLIC PANL BUN 13 mg/dL (6-20) Not Available [facility] [address] [place], [address], 07/03/2022 18:54:56 07/03/20 22 07/03/2022 COMPR EHENS PETER METAB OLIC PANL creatinine 0.8 mg/dL (0.5-1 .0) Not Available [facility] [address] [place], [address], 07/03/2022 18:54:56 07/03/20 22 07/03/2022 COMPR EHENS PETER METAB OLIC PANL sodium 141 mmol/ L (133-1 45) Not Available [facility] [address] [place], [address], 07/03/2022 18:54:56 07/03/20 22 07/03/2022 COMPR EHENS PETER METAB OLIC PANL potassium 4.1 mmol/ L (3.6-5 .2) Not Available [facility] [address] [place], [address], 07/03/2022 18:54:56 07/03/20 22 07/03/2022 COMPR EHENS PETER METAB OLIC PANL chloride 104 mmol/ L (98-10 7) Not Available [facility] [address] [place], [address], 07/03/2022 18:54:56 07/03/20 22 07/03/2022 COMPR EHENS PETER METAB OLIC PANL bicarbonate 28 mmol/ L (22-29 ) Not Available [facility] [address] [place], [address], 07/03/2022 18:54:56 07/03/20 22 07/03/2022 COMPR EHENS PETER METAB OLIC PANL anion gap 9 (4-17) Not Available [facility] [address] [place], [address], 07/03/2022 18:54:56 07/03/20 22 07/03/2022 COMPR EHENS PETER METAB OLIC PANL albumin 5.0 gm/dL (3.4-4 .8) high Not Available [facility] [address] [place], [address], 07/03/2022 18:54:56 07/03/20 22 07/03/2022 COMPR EHENS PETER METAB OLIC PANL calcium 10.0 mg/dL (8.6-1 0.5) Not Available [facility] [address] [place], [address], 07/03/2022 18:54:56 07/03/20 22 07/03/2022 COMPR EHENS PETER METAB OLIC PANL bilirubin,to kaley 0.5 mg/dL (0-1.2 ) Not Available [facility] [address] [place], [address], 07/03/2022 18:54:56 07/03/20 22 07/03/2022 COMPR EHENS PETER METAB OLIC PANL total protein 6.7 gm/dL (6.2-8 .2) Not Available [facility] [address] [place], [address], 07/03/2022 18:54:56 07/03/20 22 07/03/2022 COMPR EHENS PETER METAB OLIC PANL Ag ratio 2.9 Not Available [facility] [address], [address], 07/03/2022 18:54:56 07/03/20 22 07/03/2022 COMPR EHENS PETER METAB OLIC PANL AST 19 U/L (0-32) Not Available [facility] [address] [place], [address], 07/03/2022 18:54:56 07/03/20 22 07/03/2022 COMPR EHENS PETER METAB OLIC PANL alk phos 43 U/L (35-10 4) Not Available [facility] [address], [address], 07/03/2022 18:54:56 07/03/20 22 07/03/2022 COMPR EHENS PETER METAB OLIC PANL ALT 15 U/L (0-33) Not Available [facility] [address] [place], [address], 07/03/2022 18:54:56 07/03/20 22 07/03/2022 COMPR EHENS PETER METAB OLIC PANL estimated GFR creatinine 100 mL/mi n/1.7 3_M2 Creat inine based estim ated glome rular filtr ation (eGFR ) in adult s is calcu lated using the Natio nal Kidne y Found ation recom amita d 2020 CKD-E PI equat ion. Estim ates GFR from serum creat inine , age and sex. Not Available [facility] [address] [place], [address], 07/03/2022 18:54:56 07/03/20 22 07/03/2022 LIPID PANEL cholesterol, total 157 mg/dL (<200) Not Available [facility] [address] [place], [address], 07/03/2022 18:54:57 07/03/20 22 07/03/2022 LIPID PANEL triglyceride 56 mg/dL (<150) Not Available [facility] [address] [place], [address], 07/03/2022 18:54:57 07/03/20 22 07/03/2022 LIPID PANEL HDL chol 57 mg/dL (>39) Not Available [facility] [address] [place], [address], 07/03/2022 18:54:57 07/03/20 22 07/03/2022 LIPID PANEL LDL cholesterol, calculated 89 mg/dL (0-130 ) Not Available [facility] [address] [place], [address], 07/03/2022 18:54:57 07/03/20 22 07/03/2022 LIPID PANEL non HDL cholesterol (calc) 100 mg/dL (<160) Not Available [facility] [address] [place], [address], 07/03/2022 18:54:57 07/03/20 22 07/04/2022 ANTI- HEPAT ITIS C anti-hepatit is C (neg) normal NEGAT PETER Refer ence range : Negat peter This test was perfo rmed on the Abbot t Archi tect immun oassa y syste m. Not Available [facility] [address], [place], [address], 07/04/2022 10:14:32 05/23/20 24 05/24/2024 CRP+H LA-B2 7 C-reactive protein, quant <1 mg/L 0-10 Not Available [facility] ([facility]) [address], [place], [address], 05/31/2024 17:14:46 05/23/20 24 05/31/2024 CRP+H LA-B2 7 hla-B27 Negati ve HLA-B *27 Negat peter B27 allel e inter preta tion for all loci based on IMGT/ HLA datab ase versi on 3.51. 0 This test was devel oped and its perfo rmanc e tika cteri stics deter mined by [facility]. It has not been clear ed or appro michael by the Food and Drug Admin istra tion. [facility] CLIA ID Florin monteiro [id number] This test was perfo rmed using Polym erase Chain React ion (PCR) and Seque nce Speci fic Oligo nucle otide Probe s (SSOP ) techn ique. Seque nce Based Typin g (SBT) may be used as a suppl ement al metho d when neces kajal. If you have quest ions, pleas e call [facility] custo darell servi ce at [phone] or email at [facility] [email or web address] . Not Available [facility] ([facility]) [address], [place], [address], 05/31/2024 17:14:46 05/23/20 24 05/28/2024 ANTI- NUCLE AR AB BY IFA (RDL) anti-nuclear Ab by ifa (rdl) Positi ve negati ve abnormal Not Available [facility] [address] [place] [address], [address], 05/31/2024 17:14:47 05/23/20 24 05/28/2024 ANTI- NUCLE AR AB BY IFA (RDL) homogeneous pattern 1:80 <1:40 above high normal Not Available [facility] [address] [place], [address], 05/31/2024 17:14:47 05/23/20 24 05/28/2024 ANTI- NUCLE AR AB BY IFA (RDL) nucleolar pattern LACQUER [employer] OPERATOR Not Available [facility] [address] [place], [address], 05/31/2024 17:14:47 05/23/20 24 05/28/2024 ANTI- NUCLE AR AB BY IFA (RDL) speckled pattern 1:40 <1:40 above high normal Not Available [facility] [address] [facility] [place], [address], 05/31/2024 17:14:47 05/23/20 24 05/28/2024 ANTI- NUCLE AR AB BY IFA (RDL) centromere pattern [employer]AC[employer]ER [employer] OPERATOR Not Available [facility] [address] [place], [address], 05/31/2024 17:14:47 05/23/20 24 05/28/2024 ANTI- NUCLE AR AB BY IFA (RDL) spindle apparatus pattern LACQUER [employer] OPERATOR Not Available [facility] [address] [place] [address], [address], 05/31/2024 17:14:47 05/23/2005/28/2024 ANTI- NUCLE AR AB BY IFA (RDL) nuclear membrane pattern LACQUER [employer] OPERATOR Not Available [facility] [address] [place] [address], [address], 05/31/2024 17:14:47 05/23/20 24 05/28/2024 ANTI- NUCLE AR AB BY IFA (RDL) midbody pattern [employer]AC[employer] OPERATOR Not Available [facility] [address] [place] [address], [address], 05/31/2024 17:14:47 05/23/20 24 05/28/2024 ANTI- NUCLE AR AB BY IFA (RDL) nuclear dot pattern [employer]AC[employer] OPERATOR Not Available [facility] [address] [place] [address], [address], 05/31/2024 17:14:47 05/23/20 24 05/28/2024 ANTI- NUCLE AR AB BY IFA (RDL) pcna pattern LAC[employer]ER [employer] OPERATOR Not Available [facility] [address] [place] [address], [address], 05/31/2024 17:14:47 05/23/20 24 05/28/2024 ANTI- NUCLE AR AB BY IFA (RDL) centriole pattern [employer]AC[employer] OPERATOR Not Available [facility] [address] [place] [address], [address], 05/31/2024 17:14:47 05/23/20 24 05/28/2024 ANTI- NUCLE AR AB BY IFA (RDL) note: Commen t MICHELE perfo rmed by Indir ect Fluor escen t Antib man (IFA) Not Available [facility] [address] [facility], [place], [address], 05/31/2024 17:14:47 05/23/20 24 05/24/2024 RHEUM ATOID FACTO R (RF) rheumatoid factor (rf) <10.0 IU/mL <14.0 Not Available [facility] ([facility]) [address] [facility], [place], [address], 05/31/2024 17:14:47 05/23/20 24 05/24/2024 LYME DISEA SE SEROL OGY W/REF MOISES lyme total antibody gaby Negati ve negati ve Lyme antib odies not detec andrew. Refle x testi ng is not indic ated. No labor atory evide nce of infec tion with B. burgd orfer i (Lyme disea se). Negat peter resul ts may occur in patie nts recen tly infec andrew (less than or equal to 14 days) with B. burgd orfer i. If recen t infec tion is suspe cted, repea t testi ng on a new sampl e colle cted in 7 to 14 days is recom amita d. Not Available [facility] ([facility]) [address] [facility], [place], [address], 05/31/2024 17:14:48 05/23/20 24 05/24/2024 URIC ACID uric acid 4.9 mg/dL 2.6-6. 2 normal Thera peuti c targe t for gout patie nts: <6.0 Not Available [facility] ([facility]) [address] [facility], [place], [address], 05/31/2024 17:14:48 05/23/20 24 05/24/2024 SEDIM ENTAT ION RATE- WESTE RGREN sedimentatio n rate-westerg horacio 2 mm/HR 0-32 normal Not Available [facility] ([facility]) [address] [facility], [place], [address], 05/31/2024 17:14:49 06/17/20 23 06/17/2023 US, neck, soft tissu e No observ ation record ed. [facility] [address], [place], [address], 06/17/2023 12:21:26 09/23/2009/23/2023 US, breas t, limit ed PROCED URE: MM Digita l Mammo Bilate ral, US Breast Bilate ral Limite d INDICA TION: Palpab le lump upper outer quadra nt left breast . COMPAR SMILEY: None, patien t descri bes this as a baseli ne examin ation. TECHNI QUE: Full field digita l bilate ral CC and MLO, right ML, and right spot compre ssion CC 3D tomosy nthesi s images were perfor med. Comput er-aid ed detect ion (CAD) was utiliz ed in the interp retati on of this study. Focuse d ultras ound evalua tion of the upper outer quadra nts of the breast s bilate rally. DENSIT Y: The breast tissue is hetero geneou sly dense, which may obscur e masses . FINDIN GS: LEFT: No suspic ious masses , microc alcifi cation s, areas of dedra ectura l distor tion, or skin thicke elli to sugges t malign leticia. No sonogr aphic appare nt mass or fluid collec tion. RIGHT: There is focal asymme try identi fied in the upper outer quadra nt of the right breast which partia lly efface s on spot compre ssion CC view likely a ridge of normal parenc hymal tissue . There may be a subcen timete r lymph node also identi fied just latera l to this region . No sonogr aphic appare nt mass or fluid collec tion. IMPRES TACOS: 1. No focal abnorm alitie s identi fied in the palpab le region on the left. The palpab le lump is likely a degene rative dense parenc hymal tissue . 2. Probab le asymme tric parenc hymal tissue in the right axilla ry tail. RECOMM ENDATI ON: Follow -up diagno stic 3D tomosy nthesi s of the right breast in 6 months Clinic al follow -up and manage ment of the palpab le abnorm ality in the left side is also recomm ended. BI-RAD S: 3 (Proba abdi Benign ) Findin gs and recomm endati on were discus sed direct ly with the patien t at the time of the exam by the radiol ogist interp reting this exam. WSN: [id number] Orderi ng Physic nadiya: Yoshi CONTRERAS, Dayanara Dwyer Dictat ed By: Giancarlo Almeida MD Dictat ed Date/T lluvia: 2:46 pm Review ed By: Giancarlo Almeida MD Signed By: Giancarlo Almeida MD Signed Date/T lluvia: 2:46 pm Transc ribed By: OLIVER Transc ribed Date/T lluvia: 2:32 pm Patien t Class: Outpat ient [facility] ([facility]) [address] [place], [address], 09/23/2023 21:29:41 09/23/20 23 09/23/2023 mm digit al mammo bilat eral PROCED URE: MM Digita l Mammo Bilate ral, US Breast Bilate ral Limite d INDICA TION: Palpab le lump upper outer quadra nt left breast . COMPAR SMILEY: None, patien t descri bes this as a baseli ne examin ation. TECHNI QUE: Full field digita l bilate ral CC and MLO, right ML, and right spot compre ssion CC 3D tomosy nthesi s images were perfor med. Comput er-aid ed detect ion (CAD) was utiliz ed in the interp retati on of this study. Focuse d ultras ound evalua tion of the upper outer quadra nts of the breast s bilate rally. DENSIT Y: The breast tissue is hetero geneou sly dense, which may obscur e masses . FINDIN GS: LEFT: No suspic ious masses , microc alcifi cation s, areas of dedra ectura l distor tion, or skin thicke elli to sugges t malign leticia. No sonogr aphic appare nt mass or fluid collec tion. RIGHT: There is focal asymme try identi fied in the upper outer quadra nt of the right breast which partia lly efface s on spot compre ssion CC view likely a ridge of normal parenc hymal tissue . There may be a subcen timete r lymph node also identi fied just latera l to this region . No sonogr aphic appare nt mass or fluid collec tion. IMPRES TACOS: 1. No focal abnorm alitie s identi fied in the palpab le region on the left. The palpab le lump is likely a degene rative dense parenc hymal tissue . 2. Probab le asymme tric parenc hymal tissue in the right axilla ry tail. RECOMM ENDATI ON: Follow -up diagno stic 3D tomosy nthesi s of the right breast in 6 months Clinic al follow -up and manage ment of the palpab le abnorm ality in the left side is also recomm ended. BI-RAD S: 3 (Proba abdi Benign ) Findin gs and recomm endati on were discus sed direct ly with the patien t at the time of the exam by the radiol ogist interp reting this exam. WSN: [id number] Orderi ng Physic nadiya: Dayanara Hudson Dictat ed By: Giancarlo Almeida MD Dictat ed Date/T lluvia: 2:46 pm Review ed By: Giancarlo Almeida MD Signed By: Giancarlo Almeida MD Signed Date/T lluvia: 2:46 pm Transc ribed By: CSB Transc riptio n Date/T lluvia: 2:32 pm Birads : Patien t [facility] [address], [place], [address], 09/23/2023 21:29:41 03/25/20 24 03/25/2024 mm digit al mammo unila t right PROCED URE: MM Digita l Mammo Unilat Right INDICA TION: 6 month follow -up for focal asymme try in the upper quadra nt of the right breast . COMPAR SMILEY: 2022 TECHNI QUE: Digita l diagno stic mammog diallo consis ting of full field digita l mammog raphic views of the right breast in CC and MLO projec tions. Comput er-aid ed detect ion (CAD) was utiliz ed in the interp retati on of this study. DENSIT Y: The breast tissue is hetero geneou sly dense, which may obscur e small masses . FINDIN GS: There is a focal asymme try redemo nstrat ed in the upper outer quadra nt of the right breast , unchan ged. This is probab ly benign , most likely repres enting an asymme tric island of fibrog landul ar tissue given interm ixed fat densit y and lack prior ultras ound correl ate. Six-mo nth follow -up is recomm ended to ensure stabil ity, at which time the epifanio nails is due for her annual mammog diallo. IMPRES TACOS: Persis tent probab ly benign focal asymme try in the right breast . RECOMM ENDATI ON: Follow -up diagno stic bilate ral mammog diallo in 6 months BI-RAD S: 3 (Proba abdi Benign ) Lay letter mailed to epifanio nails I have person ally review ed the images and I agree with this report . WSN: [id number] Orderi ng Physic nadiya: Dayanara Belle Dictat ed By: Winston Neumann DO Dictat ed Date/T lluvia: 1:56 pm Review ed By: Olivia Pablo MD Signed By: Olivia Pablo MD Signed Date/T lluvia: 2:01 pm Transc ribed By: CSB Transc riptio n Date/T lluvia: 1:46 pm Birads : Patien t Class: Outpat ient [facility] (Out[facility]) [address] [place], [address], 03/25/2024 14:17:41 03/28/2003/25/2024 MAMMO , diagn ostic , unila teral No observ ation record ed. [id number] [facility] [address] [place], [address], 03/29/2024 08:42:59 05/24/2005/23/2024 XR, thora cic spine , 2 view Examin ation: Thorac ic spine perfor med on 024. Histor y: Reason : Dorsal denise Findin gs: Fronta l, latera l, and swimme r's views of the thorac ic spine are submit andrew. No fractu res are demons trated . There is no disc space narrow ing or produc tive change . The visual ized ribs and lung parenc hyma are unrema rkable . IMPRES TACOS: There is no osseou s abnorm ality. WSN: [id number] Orderi ng Physic nadiya: Jourdan Meek Dictat ed By: Georgina Maldonado MD Dictat ed Date/T lluvia: 9:14 am Review ed By: Georgina Maldonado MD Signed By: Georgina Maldonado MD Signed Date/T lluvia: 9:14 am Transc ribed By: OLIVER Transc ribed Date/T lluvia: 9:12 am Patien t Class: Outpat ient [facility] (Outpt Imaging) [address] [place], [address], 05/25/2024 10:07:28 05/24/2005/23/2024 XR, lumba r spine Examin ation: Lumbar spine perfor med on 024. Histor y: Reason : dorsal denise Findin gs: Fronta l, latera l, and cone-d own latera l views of the lumbar spine are compar ed to a prior study dated 2017. There are five lumbar type nonrib -beari ng verteb ral bodies . Verteb ral body height s are preser michael at all well-v isuali zed levels . Disc space narrow ing at the L4-L5 level is seen. There is no malali gnment . Surgic al clips within the right lower quadra nt are noted. An IUD is presen t. IMPRES TACOS: Degene rative disc diseas e. WSN: [id number] Orderi ng Physic nadiya: Jourdan Meek Dictat ed By: Georgina Maldonado MD Dictat ed Date/T lluvia: 9:16 am Review ed By: Georgina Maldonado MD Signed By: Georgina Maldonado MD Signed Date/T lluvia: 9:16 am Transc ribed By: OLIVER Transc ribed Date/T lluvia: 9:14 am Patien t Class: Outpat ient [facility] (Outpt Imaging) [address] , [place], [address], 05/25/2024 10:07:28 05/24/20 24 05/23/2024 XR, cervi shasta spine Cervic al Spine 3 Views or Less Reason : pain COMPAR SMILEY: None. FINDIN GS: No bone lesion s or fractu res. Normal odonto id and C1/2 relati onship . There is slight revers al of the normal cervic al curve. Verteb ral bodies mainta in normal height and alignm ent. Disc spaces are satisf actori ly preser michael withou t degene rative change s. Normal prever tebral soft tissue s and clear lung apices . IMPRES TACOS: Mild revers al of the normal cervic al curve likely reflec ting parave rtebra l muscle spasm. Otherw ise unrema rkable examin ation. WSN: [id number] Orderi ng Physic nadiya: Jourdan Meek Dictat ed By: Goodma Harriett hill MD Dictat ed Date/T lluvia: 9:46 am Review ed By: Harriett Veras MD Signed By: Harriett Veras MD Signed Date/T lluvia: 9:46 am Transc ribed By: OLIVER Transc ribed Date/T lluvia: 9:41 am Patien t Class: Outpat ient [facility] (Outpt Imaging) [address] [place], [address], 05/25/2024 10:07:29 Result Notes None recorded. Problems Name Problem SNOMED Code Status Onset Date Resolution Date Notes Provider Name and Address Organization Details Recorded Time Acne 35844428 Active seen for acne Not Available [facility] 4 23:31:38 Insomnia 852849990 Active zolpidem prn Not Available [facility] 4 23:31:38 Asthma 292437748 Active 2017 Not Available [facility] 1 09:45:17 Visual impairmen t 970737701 Active Not Available [facility] 4 23:31:39 Lymphaden opathy 80255099 Active Not Available [facility] 4 23:31:39 Foot pain 04735749 Active seen at [facility] Not Available [facility] 4 23:31:39 Celiac disease 274163225 Active 2016 RUSS Hernadez [facility] 4 13:57:28 Allergic rhinitis 21915920 Active 2015 Followed by an youtuber Not Available [facility] 4 23:31:39 Eczema 09468724 Active 2015 Not Available [facility] 4 23:31:39 Pain in right knee Active 2016 Followed at [facility]. Medial meniscal tear. Not Available [facility] 4 23:31:39 Squamous cell carcinoma of skin 274504931 Active 2017 RUSS Hernadez [facility] 4 13:57:28 Low back pain 307957629 Active 2017 Not Available [facility] 4 23:31:38 Lateral epicondyl itis of right humerus 27616809580 9107 Active 2020 Injected by rheum Not Available [facility] 4 23:31:39 Basal cell carcinoma of back 565394405 Active 2021 Not Available [facility] 4 23:31:39 History of SARS-CoV- 2 77717134606 5180857 Active 2021 Not Available [facility] 4 23:31:38 Malignant melanoma 191146460 Active 2022 Mid upper back; seen by Dr Rich Not Available [facility] 4 23:31:39 Mass of neck 352517921 Active 2021 Possible lipoma vs cyst but given skin cancer hx this will be removed by surgery. Not Available [facility] 4 23:31:38 Exacerbat ion of moderate persisten t asthma 797158556 Active 2022 Not Available [facility] 4 23:31:39 Moderate persisten t asthma 738178200 Active 2022 Not Available [facility] 4 23:31:39 Acute bronchiti s 03198767 Active 2022 Not Available [facility] 4 23:31:38 Fatigue 68867594 Active 2022 Not Available [facility] 4 23:31:39 Hyperlipi demia 76023056 Active 2022 Not Available [facility] 4 23:31:39 Breast lump 27535059 Active 2022 Not Available [facility] 4 23:31:39 Backache 354330286 Active 2023 Rafael Meek PA-C [address] [facility] [address], [place], [address] , [facility] 4 12:49:36 Fibromyal denise 429637378 Active 2023 Seen by bruno, Dr Parnell for multiple joint pains and diagnosed with fibromyal denise. Referred back to us for treatment . Grace Engle MD [address] [address], [facility] [place], [address] , [facility] 4 15:59:19 Dysplasti c nevus of skin 934406213 Active 2017 Danielle Murphy LPN [facility] 4 13:57:28 Problem Notes None recorded. Procedures Surgical History Date Name Laterality Status Provider Name and Address Organization Details Recorded Time 03/25/20 24 Most Recent Mammogram completed Mary Mcfadden [facility] 03/29/2024 08:42:49 11/05/19 24 screening for malignant neoplasm of cervix completed Mary Mcfadden [facility] 11/07/2023 09:48:23 07/02/20 23 excision of mass of neck completed Mary Mcfadden [facility] 07/02/2023 12:49:06 01/01/20 23 excision of melanoma completed Danielle Murphy LPN [facility] 09/03/2023 13:15:31 07/29/20 21 injection completed Tatyana Suazo [facility] 07/31/2021 09:16:57 05/06/20 21 Orthopedic Surgery completed Grace Engle MD [address] [address], [place], [address], [facility] 06/24/2021 14:41:58 06/08/20 18 Date of Last Pap Smear completed Tatyana Suazo [facility] 07/11/2022 16:57:40 10/05/19 12 Orthopedic Surgery completed Grace Engle MD [address] [address], [place], [address], [facility] 02/27/2015 14:13:15 05/05/20 07 Appendectomy [facility] 06/24/2021 14:16:33 10/05/19 04 Orthopedic Surgery completed Grace Engle MD [address], [place], [address], [place] [facility] 02/27/2015 14:13:15 07/14/19 97 Tonsillectomy completed Judy Wilburn [place] [facility] 07/09/2022 13:02:21 myringotomy and insertion of tympanic ventilation tube completed Jocelyne davey [place] [facility] 08/24/2020 13:23:01 Imaging Results Imaging Date Name Status LastModified by Organiz ation Details LastModified Time 06/17/2023 US, neck, soft tissue completed [facility] [address] [place] [address], [place], [address], 06/17/2023 12:21:26 09/23/2023 US, breast, limited completed [facility] (Outpt Imaging) [address] [place], [address], 09/23/2023 21:29:41 09/23/2023 mm digital mammo bilateral completed [facility] (Outpt Imaging) [address] [place], [address], 09/23/2023 21:29:41 03/25/2024 mm digital mammo unilat right completed [facility] (Outpt Imaging) [address] [place], [address], 03/25/2024 14:17:41 03/25/2024 MAMMO, diagnostic, unilateral completed [address] [place], [address], 03/29/2024 08:42:59 05/23/2024 XR, thoracic spine, 2 view completed [facility] (Outpt Imaging) [address] [place], [address], 05/25/2024 10:07:28 05/23/2024 XR, lumbar spine completed [facility] (Outpt Imaging) [address] [place], [address], 05/25/2024 10:07:28 05/23/2024 XR, cervical spine completed [facility] (Outpt Imaging) [address] [place], [address], 05/25/2024 10:07:29 Procedure Notes None recorded. Medical Equipment None Reported. Allergies Allergen ID Allergen Name Allergen Category Reaction Reaction Severity Criticality Documentation Date Start Date Code Code System Note Provider Name and Address Organization Details Recorded Time 20412 wheat gluten extract food Not available Not available Not available 07/09/2022 94361 81 RxNorm DARRON Robert [facility] 2 13:02:20 20275 Gluten (substanc e) food,medi cation Not available Not available Not available 05/02/20242019 58179 004 SNOMED DARRON Yusuf [facility] 4 15:45:11 04084 povidone- iodine medicatio n Not available Not available Not available 09/08/20242023 8611 RxNorm RUSS Hernadez [facility] 4 13:56:59 73154 wheat bran extract food,medi cation Not available Not available Not available 09/08/20242018 89229 46 RxNorm RUSS Hernadez [facility] 4 13:56:59 85542 latex environme nt,medica tion itching Not available Not available 09/08/20242022 00743 91 RxNorm DanielleRUSS Ocampo [facility] 4 13:56:59 Medications Name Sig Start Date Stop Date Status Note LastModified by Organization Details LastModified Time compound drug 09/17 completed Not Available Not Available Not Available cyclobenz aprine 10 mg tablet 09/17 completed Not Available Not Available Not Available Mirena 21 mcg/24 hr (up to 8 years) 52 mg intrauter ine device Take by intraute rine route. 2018 active Not Available Not Available Not Avai lable ascorbic acid (vitamin C) 1,000 mg tablet Take 1 tablet every day by oral route. active Not Available Not Available No t Available doxycycli ne hyclate 100 mg capsule TAKE 1 CAPSULE BY MOUTH TWICE A DAY FOR 7 DAYS 07/09 completed Not Available Not Available Not Available azithromy sergey 250 mg tablet TAKE 2 TABLETS BY MOUTH TODAY, THEN TAKE 1 TABLET DAILY FOR 4 DAYS DIRECTED 05/02 completed Not Available Not Available Not Available Retin-A 0.025 % topical cream APPLY PEA-SIZE D AMOUNT TO FACE 2X WEEKLY, INCREASE TO EVERY NIGHT TOLERATE D active Not Available Not Available No t Available fluconazo le 150 mg tablet TAKE 2 TABLETS BY MOUTH ON DAY ONE, THEN REPEAT DOSE IN 1 WEEK 06/24 completed Not Available Not Available Not Available meloxicam 15 mg tablet 09/17 completed Not Available Not Available Not Available prednison e 20 mg tablet TAKE 2 TABLETS (40 MG TOTAL) BY MOUTH ONCE DAILY DIRECTED FOR WHEEZING FOR 5 DAYS. 05/02 completed Not Available Not Available Not Available ceftriaxo ne 250 mg solution for injection 250 mg every 24 hours by injectio n route. 06/02 completed Not Available Not Available Not Available spironola ctone 100 mg tablet TAKE 1 TABLET BY MOUTH EVERY DAY 07/09 completed episodes of hypotent ion Not Available Not Available Not Available clobetaso l 0.05 % topical cream 04/20 completed Not Available Not Available Not Available sulfameth oxazole 800 mg-trimet hoprim 160 mg tablet TAKE 1 TABLET BY MOUTH TWICE A DAY FOR 3 DAYS 09/03 completed Not Available Not Available Not Available triamcino lone acetonide 0.1 % topical cream APPLY TO ARMS AND LEGS TWICE DAILY NEEDED FOR FLARES, DECREASE USE SYMPTOMS IMPROVE active Not Available Not Available No t Available Protopic 0.1 % topical ointment APPLY TO AFFECTED AREA TWICE A DAY 06/24 completed Not Available Not Available Not Available clindamyc in 1 % topical gel 06/22 completed Not Available Not Available Not Available triamcino lone acetonide 0.025 % topical cream PLEASE SEE ATTACHED FOR DETAILED DIRECTIO NS 06/24 completed Not Available Not Available Not Available aspirin 325 mg tablet,de layed release TAKE ONE TABLET BY MOUTH DAILY FOR 14 DAYS POST OPERATIV MARIE 06/24 completed Not Available Not Available Not Available oseltamiv ir 75 mg capsule 02/17 completed Not Available Not Available Not Available magnesium 500 mg (as magnesium oxide) tablet Take 2 tablets every day by oral route as needed. active Not Available Not Available No t Available gabapenti n 300 mg capsule TAKE 1 CAPSULE BY MOUTH EVERY DAY AT BEDTIME FOR 30 DAYS active Not Available Not Available No t Available zolpidem 5 mg tablet 09/17 completed Not Available Not Available Not Available gabapenti n 100 mg capsule TAKE 1 CAPSULE BY MOUTH THREE TIMES A DAY DIRECTED FOR 30 DAYS active Not Available Not Available No t Available zolpidem 10 mg tablet TAKE 1 TABLET BY MOUTH DAILY NEEDED FOR INSOMNIA FOR 30 DAYS. 05/02 completed Not Available Not Available Not Available ketoconaz ole 2 % topical cream APPLY TOPICALL Y TO BACK TWICE A DAY UNTIL SCALES CLEAR 05/02 completed Not Available Not Available Not Available fluticaso ne propionat e 50 mcg/actua tion nasal spray,cat pension SPRAY 1 SPRAY EVERY DAY BY INTRANAS AL ROUTE. 06/24 completed Not Available Not Available Not Available doxycycli ne hyclate 100 mg tablet Take 1 tablet twice a day by oral route for 14 days. 04/20 completed Not Available Not Available Not Available naproxen 500 mg tablet TAKE 1 TABLET BY MOUTH TWICE A DAY X 6 WEEKS 09/08 completed Not Available Not Available Not Available spironola ctone 50 mg tablet TAKE 1 TABLET BY MOUTH EVERY DAY active Not Available Not Available No t Available amoxicill in 875 mg-potass ium clavulana te 125 mg tablet Take 1 tablet every 12 hours by oral route for 10 days. 06/02 completed Not Available Not Available Not Available Ventolin HFA 90 mcg/actua tion aerosol inhaler INHALE 2 PUFFS INTO THE LUNGS EVERY 4 TO 6 HOURS NEEDED FOR ASTHMA FOR 30 DAYS. active Not Available Not Available No t Available oxycodone 5 mg tablet TAKE 1 TABLET BY MOUTH EVERY 6 HOURS NEEDED FOR PAIN. (DO NOT DRIVE WHILE ON THIS MEDICATI ON) 06/24 completed Not Available Not Available Not Available Sprintec (28) 0.25 mg-35 mcg tablet 09/17 completed Not Available Not Available Not Available cyclobenz aprine 5 mg tablet TAKE 1 TABLET BY MOUTH 3 TIMES DAILY NEEDED FOR MUSCLE SPASMS FOR UP TO 10 DAYS. 05/02 completed Not Available Not Available Not Available Elderberr y 200 mg capsule Take 1 capsule every day by oral route. active Not Available Not Available No t Available magnesium 02/17 completed Not Available Not Available Not Available Vitamin C 02/17 completed Not Available Not Available Not Available multivita min 1 tablet po daily active Not Available Not Available No t Available Symbicort 160 mcg-4.5 mcg/actua tion HFA aerosol inhaler INHALE 2 PUFFS INTO THE LUNGS TWICE DAILY DIRECTED FOR ASTHMA FOR 30 DAYS. 05/02 completed Not Available Not Available Not Available 12 Hour Decongest ant ER 120 mg tablet,ex tended release TAKE 1 TABLET BY MOUTH EVERY 12 HOURS 06/24 completed Not Available Not Available Not Available melatonin 5 mg tablet Take 10 mg by oral route. 05/02 completed Not Available Not Available Not Available Probiotic 1 daily active Not Available Not Av ailable Not Available glucosam- chondroit -C-cindi genet 02/17 completed Not Available Not Available Not Available turmeric root extract 500 mg capsule Take 1 capsule every day by oral route. active Not Available Not Available No t Available Larissia 0.1 mg-20 mcg tablet Take 1 tablet every day by oral route for 28 days. 01/11 completed Not Available Not Available Not Available Flucelvax Quad 9195-8226 (PF) 60 mcg (15 mcg x 4)/0.5 mL IM syringe 04/20 completed Not Available Not Available Not Available Vitals Date Recorded Body height Body mass index (BMI) Body weight Heart rate Oxygen saturation Oxygen saturation in Arterial blood by Pulse oximetry Body temperature Systolic blood pressure Diastolic blood pressure Provider Name and Address Organization Details Last Updated DateTime 2 167.64 cm 21.2 kg/m2 78903.4 g 64 /min 98 % 98 % 98.24 [degF] 113 mm[Hg] 74 mm[Hg] Judy Wilburn MA [facility] 2 13:10:19 Date Recorded Body height Body mass index (BMI) Body weight Heart rate Oxygen saturation Oxygen saturation in Arterial blood by Pulse oximetry Body temperature Systolic blood pressure Diastolic blood pressure Provider Name and Address Organization Details Last Updated DateTime 3 170.18 cm 21.1 kg/m2 08379.9 7 g 66 /min 96 % 96 % 99.5 [degF] 112 mm[Hg] 69 mm[Hg] Danielle Murphy LPN [facility] 3 13:12:19 Date Recorded Body height Body mass index (BMI) Body weight Oxygen saturation Oxygen saturation in Arterial blood by Pulse oximetry Heart rate Body temperature Systolic blood pressure Diastolic blood pressure Provider Name and Address Organization Details Last Updated DateTime 4 170.18 cm 21.5 kg/m2 32836.2 5 g 98 % 98 % 66 /min 98.5 [degF] 99 mm[Hg] 65 mm[Hg] Alexandria Luna [facility] 4 15:50:44 Date Recorded Body height Provider Name an d Address Organization Details Last Updated DateTime 08/16/2024 170.18 cm Eleazar guevara [facility] 08/16/2024 13:03:57 Date Recorded Body height Body mass index (BMI) Body weight Heart rate Oxygen saturation Oxygen saturation in Arterial blood by Pulse oximetry Body temperature Systolic blood pressure Diastolic blood pressure Provider Name and Address Organization Details Last Updated DateTime 4 170.18 cm 21.4 kg/m2 88913.6 6 g 61 /min 98 % 98 % 99.2 [degF] 113 mm[Hg] 73 mm[Hg] Danielle Murphy LPN [facility] 4 13:56:30 Social History Question Answer Notes LastModified by Organizat ion Details LastModified Time Tobacco Smoking Status Never Smoker Heaven mcginnis [facility] 02/27/2015 13:58:54 Do You Have An Advance Directive? Yes Information not available 07/09/2022 What Is Your Level Of Alcohol Consumption? Occasional Rare Information not available 02/27/2015 Is Blood Transfusion Acceptable In An Emergency? Yes Information not available 03/04/2016 What Is Your Level Of Caffeine Consumption? Moderate Coffee Information not available 02/27/2015 How Much Tobacco Do You Chew? None Information not available 08/24/2020 Are You Currently Employed? Yes Information not available 02/27/2015 What Type Of Diet Are You Following? GLUTENFREE [email or web address] Information not available 06/24/2021 Which Illicit Or Recreational Drugs Have You Used? None Information not available 03/04/2016 Do You Or Have You Ever Used E-cigarettes Or Vape? 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 [email or web address] Information not available 09/03/2023 Live Alone Or With Others? With Others 2 Children And Her Boyfriend And Sometimes His Daughter Born 2009. Children No Longer See Their Biological Father But This May Change In The Future. Information not available 07/09/2022 Do You Take Precautions To Prevent Distracted Driving? Yes Information not available 03/04/2016 How Often Do You Need To Have Someone Help You When You Read Instructions, Pamphlets, Or Other Written Material From Your Doctor Or Pharmacy? Never Information not available 03/04/2016 Have You Served In The ? No Information not available 02/17/2018 Have You Or Anyone In Your Household Had Any Of The Following Symptoms In The Last 14 Days: Sore Throat, Cough, Chills, Body Aches For Unknown Reasons, Shortness Of Breath For Unknown Reasons, Loss Of Smell, Loss Of Taste, Fever At Or Greater Than 100 Degrees Fahrenheit? No [email or web address] Information not available 06/22/2020 Are You Or Anyone In Your Household A Health Care Provider Or Emergency Responder? No [email or web address] Information not available 06/22/2020 To The Best Of Your Knowledge Have You Been In Close Proximity To Any Individual Who Tested Positive For COVID-19? No Information not available 06/22/2020 What Was The Date Of Your Most Recent Tobacco Screening? 09/08/2024 Information not available 09/08/2024 How Many Children Do You Have? 2 Daughter Born 2007 And Son Born 2009 Information not available 04/20/2019 Do You Use Protection During Sex? No Information not available 03/04/2016 Do You Use Your Seat Belt Or Car Seat Routinely? Yes [email or web address] Information not available 06/24/2021 Seat Belts Used Routinely Yes Information not available 07/09/2022 Are You Sexually Active? Yes Information not available 03/04/2016 Smoke Alarm In Home Yes Information not available 07/09/2022 Do You Have Smoke And Carbon Monoxide Detectors In Your Home? Yes [email or web address] Information not available 06/24/2021 At What Age Did You Start Smoking Tobacco? 0 Information not available 09/04/2020 Are You Passively Exposed To Smoke? No Information not available 06/24/2021 Do You Or Have You Ever Used Smokeless Tobacco? Never Used Smokeless Tobacco Information not available 08/24/2020 How Much Tobacco Do You Smoke? No [email or web address] Information not available 06/24/2021 Do You Use Any Illicit Or Recreational Drugs? No Information not available 07/09/2022 Do You Use Sunscreen Routinely? Yes [email or web address] Information not available 03/04/2016 How Many Years Have You Smoked Tobacco? 0 Information not available 09/04/2020 Do You Or Have You Ever Used Any Other Forms Of Tobacco Or Nicotine? No Information not available 07/09/2022 Sex: Unknown Functional Status Question Answer Note LastModified by Organization D etails LastModified Time Are you able to walk? [email or web address] Information not available 07/09/2022 Are you able to care for yourself? Yes [email or web address] Information not available 03/04/2016 What is your exercise level? Moderate Information not available 06/24/2021 Mental Status None recorded. Family History Relationship Description Onset Age of this Age Resolved Age Notes LastModified by Organization Details LastModified Time Mother Essential hypertension [email or web address] Not available 02/2022 13:02:20 Mother Hypercholest erolemia juan Not available 03/04 13:31:07 Mother Kidney disease [email or web address] Not available 2020 14:16:09 Mother Disorder of thyroid gland Not available 2021 13:02:20 Mother Anemia 65 Not available 09/08/2024 14:02:37 Mother B12 deficiency monitoring 65 [email or web address] Not available 02/2024 14:02:55 Father Orthopedic assessment both hips replac ed Not available 07/09/2022 13:02:20 Father Carcinoma of prostate Not available 2021 13:02:20 Unspecified Relation Alcohol abuse [email or web address] Not available 2020 14:16:09 Medical History Condition Response Eczema Y Asthma Y Allergies Y Gynecological History Statement/Question Response Date of Last Colonoscopy Sexually Active? Y Menses Monthly N Date of Last Pap Smear 06/08/2018 Age at Menarche 10 Current Control Method IUD Most Recent Mammogram 03/25/2024 LMP Approximate Obstetrics History GPAL:G 0 P 0 0 0 0 Immunizations Vaccine Type Date Status Provider Name and Address Organization Details Recorded Time Influenza, split virus, quadrivalent, preservative 08/17/2018 completed RUSS Hernadez [facility] 09/03/2023 13:12:34 Influenza, MDCK, quadrivalent, preservative 08/17/2018 completed Danielle Murphy LPN rahel [facility] 09/03/2023 13:12:34 Tdap 02/17/2018 completed DARRON [facility] [facility] 07/09/2022 13:13:10 Influenza, split virus, trivalent, PF 06/25/2010 brandi mcginnis [facility] 01/16/2021 09:58:46 Influenza, split virus, trivalent, preservative 07/21/2013 completed DARRON Vasquez [facility] 08/16/2024 13:02:52 COVID-19, mRNA, LNP-S, PF, 100 mcg/0.5mL dose or 50 mcg/0.25mL dose 01/14/2021 completed DARRON Robert [facility] 07/09/2022 13:13:10 COVID-19, mRNA, LNP-S, PF, 100 mcg/0.5mL dose or 50 mcg/0.25mL dose 12/16/2020 completed Pat Harper MA null, [facility] 06/24/2021 14:28:16 Influenza, split virus, quadrivalent, PF 08/27/2019 completed Judy Wilburn MA null, [facility] 07/09/2022 13:13:10 Influenza, split virus, quadrivalent, PF 06/22/2020 completed Elias Hayward null, [facility] 06/22/2020 13:55:41 Influenza, split virus, quadrivalent, PF 07/09/2022 completed Grace Engle MD [address], [address], [facility] 07/09/2022 16:51:28 Past Encounters Encounter ID Performer Location Encounter Start Date Encounter Closed Date Diagnosis/Indication Diagnosis SNOMED-CT Code Diagnosis ICD10 Code [id number] Main Office [address] [place] [address] 02/27/2015 13:46:50 02/27/2015 14:31:50 Adult health examination 648866868 Visual impairment 375007 003 [id number] Main Office [address] [place] [address] 03/30/2015 11:35:06 03/30/2015 12:04:18 Lymphadenopathy 29369455 Adult heal th examination 296593021 [id number] Grace Engle MD Main Office [address] [place] [address] 11/13/2015 10:31:01 11/13/2015 11:30:36 Foot pain 69297980 M79.673 [id number] Grace Engle MD Main Office [address] [place] [address] 03/04/2016 13:17:08 03/04/2016 14:10:42 Administration of diphtheria, pertussis, and tetanus vaccine 142168158 Z23 Acne 03702963 L70.9 [id number] Grace Engle MD Main Office [address] [address] [place] [address] 09/17/2017 12:48:01 09/17/2017 13:42:15 Pain in right knee 2037591157 24135 M25.561 Tear of me dial meniscus of knee 875100485 S83.221A [id number] Grace Engle MD Main Office [address] [address] [place] [address] 02/17/2018 12:57:24 02/17/2018 14:21:48 Adult health examination 027488405 Z00.00 Administra tion of viral vaccine 24038917 Z23 Insomnia 332369955 G47.0 0 Acute sinusitis 36868790 J01.90 [id number] Grace Engle MD Main Office [address] [address] [place] [address] 06/02/2018 11:22:54 06/02/2018 12:25:18 Low back pain 842620131 M54.5 Lumbar arthritis 5597088 01 M46.96 [id number] Grace Engle MD Main Office [address] [address] [place] [address] 04/20/2019 14:17:58 04/20/2019 15:17:10 Adult health examination 251682305 Z00.00 Malaise and fatigue 2717 36263 R53.83 Insomnia 584359008 G47.0 0 [id number] Rafael Meek PA-C Main Office [address] [address] [place] [address] 01/12/2020 10:13:21 01/12/2020 14:28:20 Orthostatic hypotension 75576150 I95.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 Muscle spa sm of cervical muscle of neck 0323327625 04 M62.838 Acne 49182441 L70.9 [id number] Grace Engle MD Main Office [address] [address] [place] [address] 06/22/2020 13:07:43 06/22/2020 13:58:06 Adult health examination 515626180 Z00.00 Needs infl uenza immunization 524972102 Z23 Insomnia 014971493 G47.0 0 [id number] [facility] [address] [address] 08/24/2020 12:45:28 08/24/2020 15:04:05 Counseling 641248281 Z71.9 Fatigue 66998524 R53.83 [id number] Grace Engle MD Main Office [address] [address] 06/24/2021 14:07:15 06/24/2021 15:04:19 Adult health examination 850888163 Z00.00 Hyperlipidemia 98981675 E78.5 Hepatitis C screening 41 0996815 Z11.59 Lateral ep icondylitis of right humerus 5661068867 99309 M77.11 [id number] Grace Engle MD Main Office [address] [address] 07/09/2022 12:58:49 07/09/2022 13:53:42 Adult health examination 511804134 Z00.00 Needs infl uenza immunization 214206840 Z23 History of SARS-CoV-2 29 71310512 38413299 Z86.16 Insomnia 339148586 G47.0 0 Acne 25905248 L70.9 [id number] SIERRA Robert Main Office [address] [address] 09/03/2023 13:01:09 09/03/2023 14:08:29 Adult health examination 004055081 Z00.00 Insomnia 197537998 G47.0 0 Acne 51735359 L70.9 Exacerbati on of moderate persistent asthma 110364934 J45.41 Moderate p ersistent asthma 830009291 J45.40 Acute bronchitis 6150818 2 J20.9 Fatigue 87469463 R53.83 Hyperlipidemia 02758764 E78.5 Screening for malignant neoplasm of breast 828669484 Z12.39 Malignant melanoma 76437 4006 C43.9 [id number] Rafael Meek PA-C Main Office [address] [address] 05/02/2024 15:39:58 05/02/2024 16:46:15 Multiple joint pain 34088259 M25.50 Backache 402616256 M54.9 [id number] [facility] [address] [place] [address] 08/16/2024 12:39:24 08/16/2024 14:10:10 Fibromyalgia 037815428 M79.7 Fatigue 29326462 R53.83 Hyperlipidemia 60823493 E78.5 Impaired f asting glycemia 796241656 R73.01 [id number] Grace Engle MD Main Office [address] [place] [address] 09/08/2024 13:21:49 09/08/2024 14:32:50 Adult health examination 933582078 Z00.00 Insomnia 666359427 G47.0 0 Acne 83590735 L70.9 Moderate p ersistent asthma 966260203 J45.40 Hyperlipidemia 24388408 E78.5 Malignant melanoma 19714 4006 C43.9 Fibromyalgia 857096095 M 79.7 Low back pain 653019827 M54.50 Health Concerns Section Related Observation LastModified by Organization Detai ls LastModified Time None Recorded Concern Status LastModified by Organization Details LastModified Time None Recorded Advance Directives Directive Y: Payers Encounter Date Sequence Insurance Name Policy Number Policy [place] Covered Member ID [place] Member ID Guarantor Name 07/09/2022 1 [place] [facility] Yaquelin Valero [id number] Yaquelin Valero 09/03/2023 1 [place] [facility] Yaquelin Maderazzo [id number] Yaquelin Valero 05/02/2024 1 [place] [facility] Yaquelin Loyao [id number] Yaquelin Valero 08/16/2024 1 [place] [facility] Yaquelin Loyao [id number] Yaquelin Valero 09/08/2024 1 [place] [facility] Yaquelin Loyao [id number] Yaquelin Valero Notes Date Note Type Note Provider Name and Address Organization Details Recorded Time 07/09/2022 text/html Generic HPI TemplateReported bypatient.Notes:She is fully vaccinated against COVID and had an infection a few months ago and received steroids because of SOB. She has since recovered completely.Very busy with work and family. Has fatigue often. Grace Engle MD [address] [address], [place], [address], [facility] 07/09/2022 16:53:33 09/03/2023 text/html Generic HPI TemplateReported bypatient.Notes:Presen ts for PE.had cold sx, loses her voice a lot, tested + for covid early august, no paxlovid, felt better after 10-12 days. Feeling winded, SOB, using her inhaler every 4 hours. Coughing again the last couple days is productive. 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 Pt also complains of bilateral hip pain as well that wakes her from a sound sleep. does foam rolling, hep - no sig helppain worse as day goes on, needs warm compress / ibuROM is sig less, cannot twist like she used toworse this past week p celiac acted upno fh RAno b/b dysfxn Rafael Meek PA-C [address] [address], [place], [address], [facility] 05/05/2024 12:52:12 08/16/2024 text/html seen recently by rheum - ? fibromyalgia from ATCreviewed 2 recent consults in detail c pt ([facility])has f/u c [facility] rheum in 2 wkshas increased gbn to 300mg qhs and naproxen 1-2 times/day Dang mcginnis, [facility] 08/26/2024 14:02:45 09/08/2024 text/html Generic HPI TemplateReported bypatient.Notes:Presen ts for PE.Has been seeing rheum for multiple joint pains and diagnosed with fibromyalgia.Sleep has improved some.Had initial COVID vaccine series but no subsequent boosters.UTD with tetanus and not currently getting a flu vaccine. Grace Engle MD [address] [address], [place], [address], [facility] 09/12/2024 12:35:36 OBGyn Episode No OBEpisode recorded.
--- OUTSIDE RECORDS SUMMARY | 2024-09-13 18:18 | XMS_ITS | Continuity of Care Document ---
Author Organization [facility], Main Office Address [address] [facility] [address] [place] [address] Care Team Providers Care Professor Of Oceanography Name Role Phone LUX ENGLE Primary Care Provider DAVON ABARCA Referring Provider [facility] (DERMATOLOGY) Derm atologist ISABELA REBOLLEDO Wire Straightener [facility] Orthopedic Surgeon EVELIN RICH Referring Provider PAOLA LORENZANA Referring Provider [phone] GASPER PARNELL Referring Provider MELISSA MILLER Wire Straightener [phone] Assessment No assessment recorded. Plan of Treatment Reminders Order Date Submit Date Provider Last Modified By Organization Details Last Modified Time Details Appointments None recorde d. Lab lipid panel, serum 024 09/08/20 24 [place] [facility], [address], [address], 12:19:58 Referral None recorde d. Procedures None recorde d. Surgeries None recorde d. Imaging None recorde d. Medication Orders None recorde d. Patient TargetsNo targets recorded. Patient Instructions Encounter Date Encounter Id Patient Instructions Last Modified By Organization Details Last Modified Time 09/08/2024 [id number] To call or retur n for worsening or concerns [email or web address] Not available 09/08/2024 12:31:56 Reason for Referral None Reported. Problems Name Problem SNOMED Code Status Onset Date Resolution Date Notes Provider Name and Address Organization Details Recorded Time Acne 45012722 Active seen for acne Not Available [facility] 4 23:31:38 Insomnia 728311820 Active zolpidem prn Not Available [facility] 4 23:31:38 Asthma 907221106 Active 2017 Not Available [facility] 1 09:45:17 Visual impairmen t 792337537 Active Not Available [facility] 4 23:31:39 Lymphaden opathy 14107862 Active Not Available [facility] 4 23:31:39 Foot pain 20248255 Active seen at [facility] Not Available [facility] 4 23:31:39 Celiac disease 521497286 Active 2016 RUSS Hernadez, [facility] 4 13:57:28 Allergic rhinitis 71822469 Active 2015 Followed by an digital media strategist Not Available [facility] 4 23:31:39 Eczema 41351973 Active 2015 Not Available [facility] 4 23:31:39 Pain in right knee Active 2016 Followed at [facility]. Medial meniscal tear. Not Available [facility] 4 23:31:39 Squamous cell carcinoma of skin 858621126 Active 2017 RUSS Hernadez, [facility] 4 13:57:28 Low back pain 331697223 Active 2017 Not Available [facility] 4 23:31:38 Lateral epicondyl itis of right humerus 27213761880 9107 Active 2020 Injected by rheum Not Available [facility] 4 23:31:39 Basal cell carcinoma of back 511269836 Active 2021 Not Available [facility] 4 23:31:39 History of SARS-CoV- 2 82904744335 0486487 Active 2021 Not Available [facility] 4 23:31:38 Malignant melanoma 696082586 Active 2022 Mid upper back; seen by Dr Rich Not Available [facility] 4 23:31:39 Mass of neck 529473940 Active 2021 Possible lipoma vs cyst but given skin cancer hx this will be removed by surgery. Not Available [facility] 4 23:31:38 Exacerbat ion of moderate persisten t asthma 163570280 Active 2022 Not Available [facility] 4 23:31:39 Moderate persisten t asthma 558357836 Active 2022 Not Available [facility] 4 23:31:39 Acute bronchiti s 63872411 Active 2022 Not Available [facility] 4 23:31:38 Fatigue 02732466 Active 2022 Not Available [facility] 4 23:31:39 Hyperlipi demia 92389077 Active 2022 Not Available [facility] 4 23:31:39 Breast lump 64996640 Active 2022 Not Available [facility] 4 23:31:39 Backache 711655679 Active 2023 Rafael Meek PA-C [address] [facility] [address], [place], [address] , [facility] 4 12:49:36 Fibromyal denise 075078174 Active 2023 Seen by rheum, Dr Parnell for multiple joint pains and diagnosed with fibromyal denise. Referred back to us for treatment . Lux Engle MD [address] [facility] [address], [place], [address] , [facility] 4 15:59:19 Dysplasti c nevus of skin 078521725 Active 2017 Danielle Murphy LPN [facility], [facility] 4 13:57:28 Problem Notes None recorded. Procedures Surgical History Date Name Laterality Status Provider Name and Address Organization Details Recorded Time 03/25/20 Most Recent Mammogram completed Mary Mcfadden [facility] 03/29/2024 08:42:49 02/01/20 24 screening for malignant neoplasm of cervix completed Mary Mcfadden [facility] 11/07/2023 09:48:23 07/02/20 23 excision of mass of neck completed Mary Mcfadden [facility] 07/02/2023 12:49:06 01/01/20 23 excision of melanoma completed Danielle Murphy LPN [facility] 09/03/2023 13:15:31 07/29/20 21 injection completed Tatyana Suazo [facility] 07/31/2021 09:16:57 05/06/20 21 Orthopedic Surgery completed Lux Engle MD [address], [address], [facility] 06/24/2021 14:41:58 06/08/20 18 Date of Last Pap Smear completed Tatyana Suazo [facility] 07/11/2022 16:57:40 10/05/19 12 Orthopedic Surgery completed Lux Engle MD [address] [address], [place], [address], [facility] 02/27/2015 14:13:15 05/05/20 07 Appendectomy completed Pat Harper MA [facility] 06/24/2021 14:16:33 10/05/19 04 Orthopedic Surgery completed Lux Engle MD [address], [address], [facility] 02/27/2015 14:13:15 07/14/19 97 Tonsillectomy completed Judy Wilburn MA [facility] 07/09/2022 13:02:21 myringotomy and insertion of tympanic ventilation tube completed Jocelyne davey MA [facility] 08/24/2020 13:23:01 Imaging Results None recorded. Procedure Notes None recorded. Medical Equipment None Reported. Allergies Allergen ID Allergen Name Allergen Category Reaction Reaction Severity Criticality Documentation Date Start Date Code Code System Note Provider Name and Address Organization Details Recorded Time 84937 wheat gluten extract food Not available Not available Not available 07/09/2022 97140 81 RxNorm DARRON Robert, [facility] 2 13:02:20 47595 Gluten (substanc e) food,medi cation Not available Not available Not available 05/02/20242019 17650 004 SNOMED DARRON Yusuf [facility] 4 15:45:11 36106 povidone- iodine medicatio n Not available Not available Not available 09/08/20242023 8611 RxNorm Danielle CaporaleRUSS [facility] 4 13:56:59 19527 wheat bran extract food,medi cation Not available Not available Not available 09/08/20242018 01035 46 RxNorm Danielle CaporaleRUSS [facility] 4 13:56:59 09841 latex environme nt,medica tion itching Not available Not available 09/08/20242022 70556 91 RxNorm Danielle Caporale, RUSS mcginnis [facility] 4 13:56:59 Medications Name Sig Start Date [...] Available Not Available Not Available Flucelvax Quad 7736-5444 (PF) 60 mcg (15 mcg x 4)/0.5 mL IM syringe 04/20 completed Not Available Not Available Not Available Vitals Date Recorded Body height Body mass index (BMI) Body weight Heart rate Oxygen saturation Oxygen saturation in Arterial blood by Pulse oximetry Body temperature Systolic blood pressure Diastolic blood pressure Provider Name and Address Organization Details Last Updated DateTime 4 170.18 cm 21.4 kg/m2 24326.6 6 g 61 /min 98 % 98 % 99.2 [degF] 113 mm[Hg] 73 mm[Hg] Danielle Murphy LPN [facility] 4 13:56:30 Social History Question Answer Notes LastModified by Organizat ion Details LastModified Time Tobacco Smoking Status Never Smoker Heaven [email or web address] [facility] 02/27/2015 13:58:54 Do You Have An Advance [...] Type Of Diet Are You Following? GLUTENFREE [email or web address] Information not available 06/24/2021 Which Illicit Or Recreational Drugs Have You Used? None Information not available 03/04/2016 Do You Or Have You Ever Used E-cigarettes Or Vape? 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 [...] Material From Your Doctor Or Pharmacy? Never [email or web address] Information not available 03/04/2016 Have You Served In The ? No [email or web address] Information not available 02/17/2018 Have You Or Anyone In Your Household Had Any Of The Following Symptoms In The Last 14 Days: Sore Throat, Cough, Chills, Body Aches For Unknown Reasons, Shortness Of Breath For Unknown Reasons, Loss Of Smell, Loss Of Taste, Fever At Or Greater Than 100 Degrees Fahrenheit? No [email or web address] Information not available 06/22/2020 Are You Or Anyone In Your Household A Health Care Provider Or Emergency Responder? No [email or web address] Information not available 06/22/2020 To The Best Of Your Knowledge Have You Been In Close Proximity To Any Individual Who Tested Positive For COVID-19? No [email or web address] Information not available 06/22/2020 What Was The Date Of Your Most Recent Tobacco Screening? 09/08/2024 Information not available 09/08/2024 How Many Children Do You Have? 2 Daughter Born 2007 And Son Born 2009 Information not available 04/20/2019 Do You Use Protection During Sex? No Information not available 03/04/2016 Do You Use Your Seat Belt Or Car Seat Routinely? Yes [email or web address] Information not available 06/24/2021 Seat Belts Used Routinely Yes Information not available 07/09/2022 Are You Sexually Active? Yes Information not available 03/04/2016 Smoke Alarm In Home Yes Information not available 07/09/2022 Do You Have Smoke And Carbon Monoxide Detectors In Your Home? Yes [email or web address] Information not available 06/24/2021 At What Age Did You Start Smoking Tobacco? 0 Information not available 09/04/2020 Are You Passively Exposed To Smoke? No Information not available 06/24/2021 Do You Or Have You Ever Used Smokeless Tobacco? Never Used Smokeless Tobacco Information not available 08/24/2020 How Much Tobacco Do You Smoke? No [email or web address] Information not available 06/24/2021 Do You Use [...] you able to care for yourself? Yes Information not available 03/04/2016 What is your exercise level? Moderate [email or web address] Information not available 06/24/2021 Mental Status None recorded. Family History Relationship Description Onset Age of this Age Resolved Age Notes LastModified by Organization Details LastModified Time Mother Essential hypertension Not available 02/2022 13:02:20 Mother Hypercholest erolemia juan Not available 03/04 13:31:07 Mother Kidney disease Not available 2020 14:16:09 Mother Disorder of thyroid gland Not available 2021 13:02:20 Mother Anemia 65 Not available 09/08/2024 14:02:37 Mother B12 deficiency monitoring 65 [email or web address] Not available 02/2024 14:02:55 Father Orthopedic assessment both hips replac ed Not available 07/09/2022 13:02:20 Father Carcinoma of prostate Not available 2021 13:02:20 Unspecified Relation Alcohol abuse [email or web address] Not available 2020 14:16:09 Medical History Condition [...] virus, quadrivalent, preservative 08/17/2018 completed RUSS Hernadez [facility] 09/03/2023 13:12:34 Influenza, MDCK, quadrivalent, preservative 08/17/2018 completed RUSS Hernadez [facility] 09/03/2023 13:12:34 Tdap 02/17/2018 completed DARRON Robert [facility] 07/09/2022 13:13:10 Influenza, split virus, trivalent, PF 06/25/2010 completed Tatyana mcginnis [facility] 01/16/2021 09:58:46 Influenza, split virus, trivalent, preservative 07/21/2013 completed DARRON Vasquez [facility] 08/16/2024 13:02:52 COVID-19, mRNA, LNP-S, PF, 100 mcg/0.5mL dose or 50 mcg/0.25mL dose 01/14/2021 completed DARRON Robert [facility] 07/09/2022 13:13:10 COVID-19, mRNA, LNP-S, PF, 100 mcg/0.5mL dose or 50 mcg/0.25mL dose 12/16/2020 completed Pat Harper MA null, [facility] 06/24/2021 14:28:16 Influenza, split virus, quadrivalent, PF 08/27/2019 completed Judy Wilburn MA null, [facility] 07/09/2022 13:13:10 Influenza, split virus, quadrivalent, PF 06/22/2020 completed Elias Hayward null, [facility] 06/22/2020 13:55:41 Influenza, split virus, quadrivalent, PF 07/09/2022 completed Lux Engle MD [address], [address], [facility] 07/09/2022 16:51:28 Past Encounters Encounter ID Performer Location Encounter Start Date Encounter Closed Date Diagnosis/Indication Diagnosis SNOMED-CT Code Diagnosis ICD10 Code [id number] Dang [facility] [address] [address] 08/16/2024 12:39:24 08/16/2024 14:10:10 Fibromyalgia 419172838 M79.7 Fatigue 24255540 R53.83 Hyperlipidemia 05944873 E78.5 Impaired f asting glycemia 346829825 R73.01 [id number] Lux Engle MD Main Office [address] [address] 09/08/2024 13:21:49 09/08/2024 14:32:50 Adult health examination 005150669 Z00.00 Insomnia 098502545 G47.0 0 Acne 74435031 L70.9 Moderate p ersistent asthma 932829557 J45.40 Hyperlipidemia 08376274 E78.5 Malignant melanoma 87666 4006 C43.9 Fibromyalgia 307732042 M 79.7 Low back pain 275101628 M54.50 Health Concerns Section Related Observation LastModified by Organization Detai ls LastModified Time None Recorded Concern Status LastModified by Organization Details LastModified Time None Recorded Payers Encounter Date Sequence Insurance Name Policy Number Policy [place] Covered Member ID [place] Member ID Guarantor Name 09/08/2024 1 [place] [facility] Yaquelin Gm Valero [id number] Yaquelin Valero Notes Date Note Type Note Provider Name and Address Organization Details Recorded Time 09/08/2024 text/html Generic HPI TemplateReported bypatient.Notes:Presen ts for PE.Has been seeing rheum for multiple joint pains and diagnosed with fibromyalgia.Sleep has improved some.Had initial COVID vaccine series but no subsequent boosters.UTD with tetanus and not currently getting a flu vaccine. Lux Engle MD [address] [address], [place], [address], [facility] 09/12/2024 12:35:36 OBGyn Episode No OBEpisode recorded.
--- OUTSIDE RECORDS SUMMARY | 2024-09-13 18:18 | XMS_ITS | Continuity of Care Document ---
Author Organization [facility], [facility] Address [address] [place] [address] Care Team Providers Care Machine Heddle Cleaner Name Role Phone LUX ENGLE Primary Care Provider DAVON ABARCA Referring Provider [phone] [facility] (DERMATOLOGY) Derm atologist ISABELA REBOLLEDO Internal Audit Senior Manager [facility] Orthopedic Surgeon EVELIN RICH Referring Provider [phone] PAOLA LORENZANA Referring Provider GASPER PARNELL Referring Provider MELISSA MILLER Internal Audit Senior Manager Assessment Encounter Date Assessment Date Assessment LastModified by Organization Details LastModified Time 08/16/2024 08/16/2024 This service was provided using telemedicine. Patient consented to video & audio visit Patient was located in the [facility]. Provider was located in the office. No other persons participated in the telemedicine visit except for the patient unless otherwise indicated here. {{}} Total time of visit was 32 minutes. [email or web address] Not available 08/16/2024 14:03:51 Plan of Treatment Reminders Order Date Submit Date Provider Last Modified By Organization Details Last Modified Time Details Appointments None recorded. Lab HbA1c (hemoglobin A1c), blood 2023 024 [facility], [address], [address], 13:57:54 lipid panel, serum 2023 024 [facility], [address], [place], [address], 13:57:38 TSH, ultra-sensi tive, serum 2023 [facility], [address], [address], [place], [address], 13:57:38 CMP, serum or plasma 2023 [facility], [address], [address], [place], [address], 13:57:54 CBC w/ auto diff 2023 [facility], [address], [address], [place], [address], 13:57:54 Referral None recorded. Procedures None recorded. Surgeries None recorded. Imaging None recorded. Medication Orders gabapentin 300 mg capsule 2023 [id number], [address], [place], [address], 13:57:37 Patient TargetsNo targets recorded. Patient Instructions Encounter Date Encounter Id Patient Instructions Last Modified By Organization Details Last Modified Time 08/16/2024 [id number] take gabapentin at night x 3 nights, [...] of medication. [email or web address] Not available 08/16/2024 13:53:45 Reason for Referral None Reported. Problems Name Problem SNOMED Code Status Onset Date Resolution Date Notes Provider Name and Address Organization Details Recorded Time Acne 66780848 Active seen for acne Not Available [facility] 4 23:31:38 Insomnia 446242142 Active zolpidem prn Not Available [facility] 4 23:31:38 Asthma 906268813 Active 2017 Not Available [facility] 1 09:45:17 Visual impairmen t 949235141 Active Not Available [facility] 4 23:31:39 Lymphaden opathy 81236516 Active Not Available [facility] 4 23:31:39 Foot pain 83477466 Active seen at [facility] Not Available [facility] 4 23:31:39 Celiac disease 434813307 Active 2016 RUSS Hernadez, [facility] 4 13:57:28 Allergic rhinitis 82130792 Active 2015 Followed by an database admin Not Available [facility] 4 23:31:39 Eczema 42984132 Active 2015 Not Available [facility] 4 23:31:39 Pain in right knee Active 2016 Followed at [facility]. Medial meniscal tear. Not Available [facility] 4 23:31:39 Squamous cell carcinoma of skin 695821262 Active 2017 RUSS Hernadez, [facility] 4 13:57:28 Low back pain 401328740 Active 2017 Not Available [facility] 4 23:31:38 Lateral epicondyl itis of right humerus 88382521905 9107 Active 2020 Injected by rheum Not Available [facility] 4 23:31:39 Basal cell carcinoma of back 387021515 Active 2021 Not Available [facility] 4 23:31:39 History of SARS-CoV- 2 15466101755 6752245 Active 2021 Not Available [facility] 4 23:31:38 Malignant melanoma 305794615 Active 2022 Mid upper back; seen by Dr Rich Not Available [facility] 4 23:31:39 Mass of neck 633966990 Active 2021 Possible lipoma vs cyst but given skin cancer hx this will be removed by surgery. Not Available [facility] 4 23:31:38 Exacerbat ion of moderate persisten t asthma 547602747 Active 2022 Not Available [facility] 4 23:31:39 Moderate persisten t asthma 955268392 Active 2022 Not Available [facility] 4 23:31:39 Acute bronchiti s 51115226 Active 2022 Not Available [facility] 4 23:31:38 Fatigue 13712796 Active 2022 Not Available [facility] 4 23:31:39 Hyperlipi demia 52528639 Active 2022 Not Available [facility] 4 23:31:39 Breast lump 60373615 Active 2022 Not Available [facility] 4 23:31:39 Backache 519345399 Active 2023 Rafael Meek PA-C [address], [place], [address] , [facility] 4 12:49:36 Fibromyal denise 561477340 Active 2023 Seen by rheum, Dr Parnell for multiple joint pains and diagnosed with fibromyal denise. Referred back to us for treatment . Lux Engle MD [address] [facility] [address], [place], [address] , [facility] 4 15:59:19 Dysplasti c nevus of skin 274624590 Active 2017 Danielle Murphy LPN [facility], [facility] 4 13:57:28 Problem Notes None recorded. Procedures Surgical History Date Name Laterality Status Provider Name and Address Organization Details Recorded Time 03/25/20 Most Recent Mammogram completed Mary Mcfadden [facility] 03/29/2024 08:42:49 11/05/19 screening for malignant neoplasm of cervix completed Mary Mcfadden [facility] 11/07/2023 09:48:23 07/02/20 23 excision of mass of neck completed Mary Mcfadden [facility] 07/02/2023 12:49:06 01/01/20 23 excision of melanoma completed Danielle Murphy LPN [facility] 09/03/2023 13:15:31 07/29/20 21 injection completed Tatyana Suazo [facility] 07/31/2021 09:16:57 05/06/20 21 Orthopedic Surgery completed Lux Engle MD [address], [address], [facility] 06/24/2021 14:41:58 06/08/20 18 Date of Last Pap Smear completed Tatyana Suazo [facility] 07/11/2022 16:57:40 10/05/19 12 Orthopedic Surgery completed uLx Engle MD [address] [address], [place], [address], [facility] 02/27/2015 14:13:15 05/05/20 07 Appendectomy completed Pat Harper MA [facility] 06/24/2021 14:16:33 10/05/19 04 Orthopedic Surgery completed Lux Engle MD [address], [address], [facility] 02/27/2015 14:13:15 07/14/19 97 Tonsillectomy completed Judy Wilburn MA [facility] 07/09/2022 13:02:21 myringotomy and insertion of tympanic ventilation tube completed Jocelyne davey MA [facility] 08/24/2020 13:23:01 Imaging Results None recorded. Procedure Notes None recorded. Medical Equipment None Reported. Allergies Allergen ID Allergen Name Allergen Category Reaction Reaction Severity Criticality Documentation Date Start Date Code Code System Note Provider Name and Address Organization Details Recorded Time 42398 wheat gluten extract food Not available Not available Not available 07/09/2022 74516 81 RxNorm Judy Wilburn MA null, [facility] 2 13:02:20 49524 Gluten (substanc e) food,medi cation Not available Not available Not available 05/02/20242019 01705 004 SNOMED DARRON Yusuf, [facility] 4 15:45:11 59364 povidone- iodine medicatio n Not available Not available Not available 09/08/20242023 8611 RxNorm Danielle Caporale, ENVELOPE CUTTER null, [facility] 4 13:56:59 08498 wheat bran extract food,medi cation Not available Not available Not available 09/08/20242018 99004 46 RxNorm Danielle Caporale, ENVELOPE CUTTER null, [facility] 4 13:56:59 80066 latex environme nt,medica tion itching Not available Not available 09/08/20242022 18812 91 RxNorm [facility]orale, [facility] 13:56:59 Medications Name Sig Start [...] Available Not Available Not Available Flucelvax Quad 7277-6417 (PF) 60 mcg (15 mcg x 4)/0.5 mL IM syringe 04/20 completed Not Available Not Available Not Available Vitals Date Recorded Body height Provider Name an d Address Organization Details Last Updated DateTime 08/16/2024 170.18 cm Eleazar guevara [facility] 08/16/2024 13:03:57 Social History Question Answer Notes LastModified by Organizat ion Details LastModified Time Tobacco Smoking Status Never Smoker Heaven mcginnis [facility] 02/27/2015 13:58:54 Do You Have An Advance [...] Type Of Diet Are You Following? GLUTENFREE Information not available 06/24/2021 Which Illicit Or Recreational Drugs Have You Used? None Information not available 03/04/2016 Do You Or Have You Ever Used E-cigarettes Or Vape? 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 [...] Have You Served In The ? No [email or web address] Information not available 02/17/2018 Have You Or Anyone In Your Household Had Any Of The Following Symptoms In The Last 14 Days: Sore Throat, Cough, Chills, Body Aches For Unknown Reasons, Shortness Of Breath For Unknown Reasons, Loss Of Smell, Loss Of Taste, Fever At Or Greater Than 100 Degrees Fahrenheit? No Information not available 06/22/2020 Are You Or Anyone In Your Household A Health Care Provider Or Emergency Responder? No [email or web address] Information not available 06/22/2020 To The Best [...] Seat Belt Or Car Seat Routinely? Yes [email or web address] Information not available 06/24/2021 Seat Belts Used Routinely Yes Information not available 07/09/2022 Are You Sexually Active? Yes Information not available 03/04/2016 Smoke Alarm In Home Yes Information not available 07/09/2022 Do You Have Smoke And Carbon Monoxide Detectors In Your Home? Yes [email or web address] Information not available 06/24/2021 At What Age Did You Start Smoking Tobacco? 0 Information not available 09/04/2020 Are You Passively Exposed To Smoke? No [email or web address] Information not available 06/24/2021 Do You Or Have You Ever Used Smokeless Tobacco? Never Used Smokeless Tobacco Information not available 08/24/2020 How Much Tobacco Do You Smoke? No [email or web address] Information not available 06/24/2021 Do You Use Any Illicit Or Recreational Drugs? No Information not available 07/09/2022 Do You Use Sunscreen Routinely? Yes Information not available 03/04/2016 How Many Years [...] Not available 02/2022 13:02:20 Mother Hypercholest erolemia [email or web address] enrique Not available 03/04 13:31:07 Mother Kidney disease [email or web address] Not available 2020 14:16:09 Mother Disorder of thyroid gland Not available 2021 13:02:20 Mother Anemia 65 Not available 09/08/2024 14:02:37 Mother B12 deficiency monitoring 65 [email or web address] Not available 02/2024 14:02:55 Father Orthopedic assessment both hips replac ed Not available 07/09/2022 13:02:20 Father Carcinoma of prostate Not available 2021 13:02:20 Unspecified Relation Alcohol abuse [email or web address] Not available 2020 14:16:09 Medical History Condition [...] Influenza, split virus, quadrivalent, preservative 08/17/2018 completed Danielle Murphy LPN rahel, [facility] 09/03/2023 13:12:34 Influenza, MDCK, quadrivalent, preservative 08/17/2018 completed RUSS Hernadez, [facility] 09/03/2023 13:12:34 Tdap 02/17/2018 completed DARRON Robert, [facility] 07/09/2022 13:13:10 Influenza, split virus, trivalent, PF 06/25/2010 [facility]/16[facility] 09:58:46 Influenza, split virus, trivalent, preservative 07/21/2013 completed DARRON Vasquez, [facility] 08/16/2024 13:02:52 COVID-19, mRNA, LNP-S, PF, 100 mcg/0.5mL dose or 50 mcg/0.25mL dose 01/14/2021 [facility] 13:13:10 COVID-19, mRNA, LNP-S, PF, 100 mcg/0.5mL dose or 50 mcg/0.25mL dose 12/16/2020 completed DARRON Shelton, [facility] 06/24/2021 14:28:16 Influenza, split virus, quadrivalent, PF 08/27/2019 [facility] 13:13:10 Influenza, split virus, quadrivalent, PF 06/22/2020 completed Elias mcginnis [facility] 06/22/2020 13:55:41 Influenza, split virus, quadrivalent, PF 07/09/2022 completed Lux Engle MD [address] [address], [place], [address], [facility] 07/09/2022 16:51:28 Past Encounters Encounter ID Performer Location Encounter Start Date Encounter Closed Date Diagnosis/Indication Diagnosis SNOMED-CT Code Diagnosis ICD10 Code [id number] D[facility] [address] [place] [address] 08/16/2024 12:39:24 08/16/2024 14:10:10 Fibromyalgia 885611856 M79.7 Fatigue 56931112 R53.83 Hyperlipidemia 19631900 E78.5 Impaired f asting glycemia 847165271 R73.01 Health Concerns Section Related Observation LastModified by Organization Detai ls LastModified Time None Recorded Concern Status LastModified by Organization Details LastModified Time None Recorded Payers Encounter Date Sequence Insurance Name Policy Number Policy [place] Covered Member ID [place] Member ID Guarantor Name 08/16/2024 1 [place]: [facility] Yaquelin Valero [id number] Yaquelin Valero Notes Date Note Type Note Provider Name and Address Organization Details Recorded Time 08/16/2024 text/html seen recently by rheum - ? fibromyalgia [facility] 2 recent [facility] ([facility] f[facility] rheum in 2 wkshas increased gbn to 300mg qhs and naproxen 1-2 times/day Dang mcginnis [facility] 08/26/2024 14:02:45 OBGyn Episode No OBEpisode recorded.
== END 2024-09-07 12:45 | disposition home or self-care (01) ==
PROVIDERS: PCP Internal Medicine; Visit Provider Student in an Organized Health Care Education/Training Program
DX: M79.7 Fibromyalgia (principal); M70.61 Trochanteric bursitis, right hip; M70.62 Trochanteric bursitis, left hip; M53.3 Sacrococcygeal disorders, not elsewhere classified
CPT/HCPCS: 20610; 99214

== ENCOUNTER → 2024-09-07 11:46 | Outpatient (BNVA) | payer MEDICAID, SELFPAY | PROVIDERS: PCP Internal Medicine; Visit Provider Student in an Organized Health Care Education/Training Program | DX: M79.7 Fibromyalgia (principal); M70.61 Trochanteric bursitis, right hip; M70.62 Trochanteric bursitis, left hip; M53.3 Sacrococcygeal disorders, not elsewhere classified | CPT/HCPCS: 20610; 99212; J2003; J3300 ==

== ENCOUNTER 2025-03-08 13:22 | Outpatient (AMB) | payer MEDICAID, SELFPAY ==
[2025-03-08 13:24] VITALS: BP 94/60; PULSE 80; O2SAT 99; BMI 20.7
--- NOTE | 2025-03-08 13:24 | MHC.OFFVIS ---
Vital Signs 03/08/25 13:24 Height 5 ft 7 in Weight 132 lb 7.965 oz BMI 20.7 BP 94/60 Blood Pressure Location Lt brachial Position Sitting Pulse 80 Pulse Source Pulse Oximeter Pulse Oximetry (%) 99 Oxygen Delivery Method Room Air Intake Visit Reasons: follow up Intake Note: Patient presents for follow up on fibromyalgia and hip pain. Accompanied by: Self / Same As Patient Allergies gluten Allergy (Mild, Verified 03/08/25 13:28) celiac disease Latex, Natural Rubber Allergy (Mild, Verified 03/08/25 13:28) Rash povidone-iodine [From Betadine] Allergy (Mild, Verified 03/08/25 13:28) swelling skin, hives wheat Allergy (Mild, Verified 03/08/25 13:28) celiac Medication List - Last Reconciled 03/08/25 by Yessica Brooks MD albuterol sulfate 90 mcg/actuation (Ventolin HFA) 2 puffs inhalation Q6H PRN gabapentin 300 mg PO TID 90 days triamcinolone acetonide 0.1% 1 appl topical DAILY HPI Comments Details: Patient is a 38-year-old female with history of celiac disease managed with gluten free diet and eczema who presents for follow up Interval History: Patient initially seen 09/07/24 with me. At that time she was following up for polyarthralgias specifically back pain. Her history was concerning for seronegative spondyloarthritis possibly involving her SI joints and spine however blood work and imaging were unremarkable. She was started on gabapentin for fibromyalgia Today, She reports improvement on the gabapentin She has also added various supplements to her diet, increase her exercise and stretches and reduced her stress which has also helped overall. She is planning to see a functional medicine doctor to evaluate her sleep. 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 She reports that over the past year and a half she has been noticing that her recovery post exercise has been longer. She would wake up with pain and stiffness in her back (really extending from the cervical spine all the way down to the sacroiliac region). The pain would sometimes wake her up in the middle of the night. This has not been associated with episodes of dactylitis or enthesitis. No nail changes. No history of psoriasis. No history of inflammatory bowel disease such as UC or Crohn's. In addition to her back pain she has been noticing overwhelming fatigue. She does note that when she exercises pain does improve but she feels that after the exercise when she is at rest the pain returns. In the morning she feels that she is so stiff that it takes her at least an hour to get up and going. Denies rashes, photosensitivity, alopecia, oral/nasal ulcers, sicca symptoms, lymphadenopathy, chest pain/shortness of breath, foamy urine, lower extremity edema, muscle weakness Also denies history of seizure, CVA, psychosis, history of kidney problems, history of cytopenias, history of VTE Has 2 children. No history of miscarriages. No history of preeclampsia Working Diagnosis: Fibromyalgia Current Rheumatology Medication(s): Naproxen 500mg bid Gabapentin 300mg nightly [facility], [facility] Medical History (Updated 03/08/25 @ 13:56 by Yessica Brooks MD) Sacral lesion Greater trochanteric bursitis of both hips Fibromyalgia MICHELE positive Breast lump Acute severe exacerbation of moderate persistent allergic asthma COVID Basal cell carcinoma Lateral epicondylitis of right elbow Pain in right knee Lymphadenopathy Mass of neck Fatigue Foot pain Backache Low back pain Acne Eczema Celiac disease Asthma Allergic rhinitis Acute bronchitis Visual impairment Insomnia Hyperlipidemia Squamous cell carcinoma of skin Malignant melanoma Family History Mother Essential (primary) hypertension Hypercholesterolemia Kidney disease Hip pain, bilateral Father Disorder of thyroid gland Hip pain, bilateral FH: prostate carcinoma Social History Patient Tobacco Use Status: Never used Tobacco Review of Systems Const Details: Review of Systems Constitutional: Denies fever, chills, weight loss ENT: Denies vision changes, eye pain or eye redness, dental caries, dry mouth GI: Denies nausea, vomiting, diarrhea, abdominal pain, change in BM Pulm: Denies SOB, TIDWELL, hemoptysis, wheezing Cards: Denies chest pain, palpitations Skin: Denies Raynaud's, rash, nail changes, photosensitivity, PHARMACY TECHNICIAN ASSISTANT: Denies headaches, weakness, paresthesias, recurrent falls MSK: as per HPI All other systems reviewed and are unremarkable except noted above Physical Exam Vital Signs: Last Vital Signs Pulse 80 03/08/25 13:24 BP 94/60 03/08/25 13:24 Pulse Ox 99 03/08/25 13:24 Oxygen Delivery Method Room Air 03/08/25 13:24 BMI result Body Mass Index 20.7 Physical Examination Patient well appearing and in no apparent painful distress Able to rise from chair without support. ?Gait normal. Constitutional Mucous membranes pink and moist patient alert and cooperative HEENT Conjunctiva and sclera clear. ?Pupils equal round and reactive to light. ?No lymphadenopathy. ?Normal dentition. Respiratory System Normal respiratory effort and able to speak in complete sentences. ?Clear to auscultation bilaterally. ?No crackles, rales, rhonchi, wheezes heard. Cardiac System Regular rate and rhythm. ?S1 and S2 heard no murmurs. ?Radial pulses intact bilaterally MSK No deformity, swelling, abnormalities noted to bilateral hands. ?No evidence of synovitis. ?Able to move all joints with full range of motion, without limitation. Hands:.??Normal pain-free range of motion without tenderness, swelling, increased warmth or erythema. Able to make a full fist and has a good key carrier strength. Wrists: Normal pain-free range of motion without tenderness, swelling, increased warmth or erythema. Elbows: Full range of motion without pain. No tenderness, weakness, swelling, increased warmth or erythema. Shoulders: Full range of motion without pain. No tenderness, weakness, swelling, increased warmth or erythema. Hips: Full range of motion without pain. Hip bursa:.??Bilateral tenderness to palpation Knees:.???Normal pain-free range of motion without tenderness, swelling, increased warmth or erythema.?No effusion or crepitations Ankles:.??Normal pain-free range of motion without tenderness, swelling, increased warmth or erythema. Feet:.??Normal pain-free range of motion without tenderness, swelling, increased warmth or erythema. Tender points:??Tenderness to palpation of the bilateral trapezius muscles, anterior chest, bilateral hip bursa. Skin No rash Results Reviewed Results Reviewed: Laboratory Tests 08/10/24 13:15 WBC 8.6 RBC 4.98 Hgb 15.0 Hct 43.7 Plt Count 204 ESR 2 Sodium 140 Potassium 3.9 Chloride 103 Carbon Dioxide 29 BUN 21 H Creatinine 0.74 AST 27 ALT 30 Alkaline Phosphatase 66 Total Creatine Kinase 142 H C-Reactive Protein < 0.10 25-OH Vitamin D Total 38 TSH 1.18 IgG Total 880 IgA Total 125 IgM 158 Rheumatoid Factor < 13.0 Cycl Citrul Peptide IgG <16 MICHELE Screen POSITIVE A MICHELE Titer 1:80 H MICHELE Pattern Nuclear, Nucleolar A TREVOR-1 Antibody <11 EJ Antibody <11 OJ Antibody <11 Mi-2-Alpha Ab <11 Mi-2-Beta Ab <11 PL-7 Antibody <11 PL-12 Antibody <11 SRP Ab <11 MDA5 Ab <11 Myos P155/140 TIF1-g Ab <11 Sm (Rodriguez) Antibody <1.0 NEG SM/PUBLIC SERVICES ASSISTANT IgG Antibody <1.0 NEG Double Strand DNA Ab <1 Beta-2-GPI IgG Ab <2.0 Beta-2-GPI IgA Ab <2.0 Beta-2-GPI IgM Ab <2.0 Endomysial IgA Ab Negative Tiss Transglutamin IgG <1.0 Thyroglobulin Antibody <1 Thyroid Peroxidase Ab 1 Anti-Cardiolipin IgG Ab <2.0 Anti-Cardiolipin IgM Ab <2.0 Complement C3 109 Complement C4 18 HLA-B27 Negative Lyme Screen IgG & IgM <0.90 MRI Pelvis 08/07/24 IMPRESSION: 1. No evidence of acute osseous abnormality. No evidence of fracture, avascular necrosis or stress reaction. 2. Bilateral SI joints appear within normal limits. 3. A 0.9 cm lesion in the S1 vertebral body, with imaging characteristics as detailed above. This overall has a nonaggressive appearance. Differential considerations include a chondroid lesion. Correlate with x-ray. Follow-up imaging for reassessment as clinically indicated. Bilateral Hand/Wrist XR 08/10/24 (My read) No evidence of erosions, joint space narrowing or chondrocalcinosis SI Joint XR 08/10/24 (My read) No evidence of erosions or joint space narrowing Assessment & Plan Assessment & Plan (1) Fibromyalgia: Comment: Patient presented with polyarthralgias. Evaluation did not reveal an underlying autoimmune cause with normal ESR/CRP, negative myositis panel, negative HLA B27, normal APS labs While she does not have the traditional tender points, she does meet the ACR preliminary diagnostic criteria for fibromyalgia (1) - Widespread pain index >7 and somatic score> 5 Code(s): M79.7 - Fibromyalgia Category: Medical Plan: #Fibromyalgia Patient is a 39-year-old female with fibromyalgia here today for follow up. Plan - Gabapentin 300mg and 100mg tablets twice a day - Encouraged the non pharmaclogic management - RTC 6 months 1. Ayaka F, Rima DJ, Vipin MA, Toan DL, H?user W, Tete RS, Estefani P, Magno , Magno IJ, Chaav MEGHANN. Fibromyalgia criteria and severity scales for clinical and epidemiological studies: a modification of the ACR Preliminary Diagnostic Criteria for Fibromyalgia. J Rheumatol. 2011 Lucas;38(6):1113-22. doi: [id number]. Ep2010Nov 05. PMID: [id number]. (2) Sacral lesion: Code(s): M53.3 - Sacrococcygeal disorders, not elsewhere classified Category: Medical Plan: #New sacral lesion on MRI Discussed with radiologist at [facility]: benign appearing. Can follow up with CT. No evidence of bone marrow edema Discussed with patient, recommend follow up with primary for further imaging evaluation Plan I spent 20 minutes reviewing the record and labs, seeing the patient, discussing the treatment plan, discussing MRI with [facility] Dr. Blank and documenting in the medical record ? Medications: New gabapentin 300 mg PO BID 180 caps 1RF 90 days M79.7 - Fibromyalgia Changed From gabapentin 300 mg PO TID 90 days 270 caps 1RF M79.7 - Fibromyalgia To gabapentin 100 mg PO BID 180 caps 1RF 90 days M79.7 - Fibromyalgia Coding Level of Care Code Est Pt Level 3 (53690) Diagnoses Fibromyalgia M79.7 Sacral lesion M53.3
--- OUTSIDE RECORDS SUMMARY | 2025-03-08 13:36 | XMS_ITS | Data Portability ---
Author Organization [facility], Main Office Address [address] [place] [address] Care Team Providers Care Career Placement Services Counselor Name Role Phone GRACE ENGLE Primary Care Provider DAVON ABARCA Referring Provider [phone] [facility] (DERMATOLOGY) Derm atologist ISABELA REBOLLEDO Special Education Preschool Teacher [facility] (SAKINA RUIZ) Orthopedic Surgeon EVELIN ZIEGLER Referring Provider PAOLA LORENZANA Referring Provider [phone] GASPER PARNELL Referring Provider [phone] MELISSA MILLER Special Education Preschool Teacher Assessment Encounter Date Assessment Date Assessment LastModified by Organization Details LastModified Time 08/16/2024 08/16/2024 This service was provided using telemedicine. Patient consented to video & audio visit Patient was located in the [facility]. Provider was located in the office. No other persons participated in the telemedicine visit except for the patient unless otherwise indicated here. Total time of visit was 32 minutes. [email or web address] Not available 08/16/2024 14:03:51 Plan of Treatment Reminders Order Date Submit Date Provider Last Modified By Organization Details Last Modified Time Details Appointments None recorde d. Lab lipid panel, serum 2023 024 [facility], [address] [place] [address], [address], [address], 12:19:58 HbA1c (hemogl obin A1c), blood 2023 [facility], [address], [address], [place], [address], 4 13:57:54 lipid panel, serum 2023 [facility], [address], [address], [place], [address], 4 13:57:38 TSH, ultra-s ensitiv e, serum 2023 [facility], [address], [address], [place], [address], 4 13:57:38 CMP, serum or plasma 2023 [facility], [address], [address], [place], [address], 4 13:57:54 CBC w/ auto diff 2023 [facility], [address], [address], [place], [address], 4 13:57:54 ESR (erythr ocyte sedimen tation rate), blood 2023 [facility], [address], [place], [address], 4 17:14:49 uric acid, serum or plasma 2023 [facility], [address], [place], [address], 4 17:14:48 rf (rheuma toid factor) , serum 2023 [facility], [address], [place], [address], 4 17:14:47 MICHELE (antinu clear antibod ies) screen, ifa, serum 2023 024 [facility], [address], [place], [address], 4 17:14:47 borreli a burgdor feri IgG + IgM + total panel, IA, serum 2023 024 [facility], [address], [place], [address], 4 17:14:48 unliste d lab - CRP+hla -B27 2023 024 [facility], [address], [place], [address], 4 17:14:46 CMP, serum or plasma 2022 023 [email or web address], [address], [address], [place], [address], 4 09:06:21 lipid panel, serum 2022 023 [email or web address], [address], [address], [place], [address], 4 09:06:22 TSH, serum or plasma 2022 023 [email or web address], [address], [address], [place], [address], 4 09:06:21 T4, free, serum 2022 023 [facility], [address], [address], [place], [address], 3 13:48:25 CBC w/ auto diff 2022 023 [email or web address], [address], [address], [place], [address], 4 09:06:21 Referral None recorde d. Procedures None recorde d. Surgeries None recorde d. Imaging XR, lumbosa cral spine 2023 024 [facility], [address], [place], [address], 4 14:38:44 XR, thoraci c spine 2023 024 [email or web address] [facility], [address], [place], [address], 4 11:19:11 XR, cervica l spine 2023 024 [facility], [address] , [place], [address], 4 14:38:44 MAMMO, diagnos tic, digital , bilater al - left breast lump, freely mobile, firm, about 3cm in size 3oclock positio n [email or web address] [facility], [address], [address], [place], [address], 3 07:46:06 US, breast, unilate ral - left breast lump as above [email or web address] [facility], [address], [address], [place], [address], 3 07:46:06 Medication Orders gabapen tin 300 mg capsule 2023 024 [facility]/Pharmacy #8682, [address], [place], [address], 4 13:57:37 gabapen tin 100 mg capsule 2023 024 [facility]/Pharmacy #0517, [address], [place], [address], 4 16:43:24 prednis one 20 mg tablet 2022 024 [facility] [address], [place], [address], 4 15:53:27 albuter ol sulfate HFA 90 mcg/act uation aerosol inhaler 2022 023 [facility]/Pharmacy #0517, [address], [place], [address], 3 13:46:57 zolpide m 10 mg tablet 2022 023 [facility], [address], [place], [address], 4 16:38:02 Zithrom ax Z-Todd 250 mg tablet 2022 023 [facility]/Pharmacy #0517, [address], [place], [address], 4 15:52:54 Symbico rt 160 mcg-4.5 mcg/act uation HFA aerosol inhaler [address]/Pharmacy #0517, [address], [place], [address], 4 13:58:57 spirono lactone 50 mg tablet [address]/Pharmacy #0517, [address], [place], [address], 3 13:13:56 zolpide m 10 mg tablet 2021 022 [facility]/Pharmacy #0517, [address], [place], [address], 4 16:38:02 Patient TargetsNo targets recorded. Patient Instructions Encounter Date Encounter Id Patient Instructions Last Modified By Organization Details Last Modified Time 09/03/2023 [id number] To call or retur n for worsening or concerns [email or web address] Not available 09/03/2023 13:22:57 05/02/2024 [id number] Patient will follow up and keep appointment as scheduled. pmadden Not available 05/02/2024 16:43:17 08/16/2024 [id number] take gabapentin at night x 3 nights, [...] medication. pmadden Not available 08/16/2024 13:53:45 09/08/2024 [id number] To call or retur n for worsening or concerns [email or web address] Not available 09/08/2024 12:31:56 Reason for Referral None Reported. Results Created Date Observation Date Name Description Value Unit Range Abnormal Flag Note LastModifiedBy Organization Detail LastModifiedTime 07/03/2007/03/2022 COMPL ETE BLOOD COUNT WBC 7.4 K/mm3 (4.0-1 1.0) Not Available [facility] (Centralized Electronic Ordering - All Locations) Patient Can Go To The Location Of Their Choice, [id number] 07/03/2022 17:27:55 07/03/2007/03/2022 COMPL ETE BLOOD COUNT RBC 4.88 M/mm3 (4.20- 5.40) Not Available [facility] (Centralized Electronic Ordering - All Locations) Patient Can Go To The Location Of Their Choice, [id number] 07/03/2022 17:27:55 07/03/2007/03/2022 COMPL ETE BLOOD COUNT HGB 14.9 gm/dL (11.7- 15.5) Not Available [facility] (Centralized Electronic Ordering - All Locations) Patient Can Go To The Location Of Their Choice, [id number] 07/03/2022 17:27:55 07/03/2007/03/2022 COMPL ETE BLOOD COUNT HCT 44.2 % (35.7- 45.8) Not Available [facility] (Centralized Electronic Ordering - All Locations) Patient Can Go To The Location Of Their Choice, 07/03/2022 17:27:55 07/03/2007/03/2022 COMPL ETE BLOOD COUNT MCV 90.6 fL (80.0- 100.0) Not Available [facility] (Centralized Electronic Ordering - All Locations) Patient Can Go To The Location Of Their Choice, 07/03/2022 17:27:55 07/03/2007/03/2022 COMPL ETE BLOOD COUNT MCH 30.5 pg (27.0- 34.0) Not Available [facility] (Centralized Electronic Ordering - All Locations) Patient Can Go To The Location Of Their Choice, 07/03/2022 17:27:55 07/03/2007/03/2022 COMPL ETE BLOOD COUNT MCHC 33.7 g/dL (33.0- 37.0) Not Available [facility] (Centralized Electronic Ordering - All Locations) Patient Can Go To The Location Of Their Choice, 07/03/2022 17:27:55 07/03/2007/03/2022 COMPL ETE BLOOD COUNT plt 214 K/mm3 (150-4 60) Not Available [facility] (Centralized Electronic Ordering - All Locations) Patient Can Go To The Location Of Their Choice, 07/03/2022 17:27:55 07/03/2007/03/2022 COMPL ETE BLOOD COUNT RDW-SD 39.4 fL (<47.0 ) Not Available [facility] (Centralized Electronic Ordering - All Locations) Patient Can Go To The Location Of Their Choice, 07/03/2022 17:27:55 07/03/2007/03/2022 COMPL ETE BLOOD COUNT MPV 10.2 fL (9.4-1 2.4) Not Available [facility] (Centralized Electronic Ordering - All Locations) Patient Can Go To The Location Of Their Choice, 07/03/2022 17:27:55 07/03/2007/03/2022 COMPL ETE BLOOD COUNT automated NRBC 0.0 #/100 _WBC' s Not Available [facility] (Centralized Electronic Ordering - All Locations) Patient Can Go To The Location Of Their Choice, 07/03/2022 17:27:55 07/03/2007/03/2022 COMPL ETE BLOOD COUNT abs. NRBC 0.0 K/mm3 Not Available [facility] (Centralized Electronic Ordering - All Locations) Patient Can Go To The Location Of Their Choice, 07/03/2022 17:27:55 07/03/2007/03/2022 COMPR EHENS PETER METAB OLIC PANL glucose 92 mg/dL (70-99 ) Not Available [facility] (Centralized Electronic Ordering - All Locations) Patient Can Go To The Location Of Their Choice, 07/03/2022 18:54:56 07/03/2007/03/2022 COMPR EHENS PETER METAB OLIC PANL BUN 13 mg/dL (6-20) Not Available [facility] (Centralized Electronic Ordering - All Locations) Patient Can Go To The Location Of Their Choice, 07/03/2022 18:54:56 07/03/2007/03/2022 COMPR EHENS PETER METAB OLIC PANL creatinine 0.8 mg/dL (0.5-1 .0) Not Available [facility] (Centralized Electronic Ordering - All Locations) Patient Can Go To The Location Of Their Choice, 07/03/2022 18:54:56 07/03/2007/03/2022 COMPR EHENS PETER METAB OLIC PANL sodium 141 mmol/ L (133-1 45) Not Available [facility] (Centralized Electronic Ordering - All Locations) Patient Can Go To The Location Of Their Choice, 07/03/2022 18:54:56 07/03/2007/03/2022 COMPR EHENS PETER METAB OLIC PANL potassium 4.1 mmol/ L (3.6-5 .2) Not Available [facility] (Centralized Electronic Ordering - All Locations) Patient Can Go To The Location Of Their Choice, 07/03/2022 18:54:56 07/03/2007/03/2022 COMPR EHENS PETER METAB OLIC PANL chloride 104 mmol/ L (98-10 7) Not Available [facility] (Centralized Electronic Ordering - All Locations) Patient Can Go To The Location Of Their Choice, 07/03/2022 18:54:56 07/03/2007/03/2022 COMPR EHENS PETER METAB OLIC PANL bicarbonate 28 mmol/ L (22-29 ) Not Available [facility] (Centralized Electronic Ordering - All Locations) Patient Can Go To The Location Of Their Choice, 07/03/2022 18:54:56 07/03/2007/03/2022 COMPR EHENS PETER METAB OLIC PANL anion gap 9 (4-17) Not Available [facility] (Centralized Electronic Ordering - All Locations) Patient Can Go To The Location Of Their Choice, 07/03/2022 18:54:56 07/03/2007/03/2022 COMPR EHENS PETER METAB OLIC PANL albumin 5.0 gm/dL (3.4-4 .8) high Not Available [facility] (Centralized Electronic Ordering - All Locations) Patient Can Go To The Location Of Their Choice, 07/03/2022 18:54:56 07/03/2007/03/2022 COMPR EHENS PETER METAB OLIC PANL calcium 10.0 mg/dL (8.6-1 0.5) Not Available [facility] (Centralized Electronic Ordering - All Locations) Patient Can Go To The Location Of Their Choice, 07/03/2022 18:54:56 07/03/2007/03/2022 COMPR EHENS PETER METAB OLIC PANL bilirubin,to kaley 0.5 mg/dL (0-1.2 ) Not Available [facility] (Centralized Electronic Ordering - All Locations) Patient Can Go To The Location Of Their Choice, 07/03/2022 18:54:56 07/03/2007/03/2022 COMPR EHENS PETER METAB OLIC PANL total protein 6.7 gm/dL (6.2-8 .2) Not Available [facility] (Centralized Electronic Ordering - All Locations) Patient Can Go To The Location Of Their Choice, 07/03/2022 18:54:56 07/03/2007/03/2022 COMPR EHENS PETER METAB OLIC PANL Ag ratio 2.9 Not Available [facility] (Centralized Electronic Ordering - All Locations) Patient Can Go To The Location Of Their Choice, 07/03/2022 18:54:56 07/03/2007/03/2022 COMPR EHENS PETER METAB OLIC PANL AST 19 U/L (0-32) Not Available [facility] (Centralized Electronic Ordering - All Locations) Patient Can Go To The Location Of Their Choice, 07/03/2022 18:54:56 07/03/2007/03/2022 COMPR EHENS PETER METAB OLIC PANL alk phos 43 U/L (35-10 4) Not Available [facility] (Centralized Electronic Ordering - All Locations) Patient Can Go To The Location Of Their Choice, 07/03/2022 18:54:56 07/03/2007/03/2022 COMPR EHENS PETER METAB OLIC PANL ALT 15 U/L (0-33) Not Available [facility] (Centralized Electronic Ordering - All Locations) Patient Can Go To The Location Of Their Choice, 07/03/2022 18:54:56 07/03/2007/03/2022 COMPR EHENS PETER METAB OLIC PANL estimated GFR creatinine 100 mL/mi n/1.7 3_M2 Creat inine based estim ated glome rular filtr ation (eGFR ) in adult s is calcu lated using the Natio nal Kidne y Found ation recom amita d 2020 CKD-E PI equat ion. Estim ates GFR from serum creat inine , age and sex. Not Available [facility] (Centralized Electronic Ordering - All Locations) Patient Can Go To The Location Of Their Choice, 07/03/2022 18:54:56 07/03/2007/03/2022 LIPID PANEL cholesterol, total 157 mg/dL (<200) Not Available [facility] ([facility] Order[facility] - All Locations) Patient Can Go To The Location Of Their Choice, 07/03/2022 18:54:57 07/03/2007/03/2022 LIPID PANEL triglyceride 56 mg/dL (<150) Not Available [facility] ([facility] - All Locations) Patient Can Go To The Location Of Their Choice, 07/03/2022 18:54:57 07/03/2007/03/2022 LIPID PANEL HDL chol 57 mg/dL (>39) Not Available [facility] ([facility] Electronic Ordering - All Locations) Patient Can Go To The Location Of Their Choice, [id number] 07/03/2022 18:54:57 07/03/2007/03/2022 LIPID PANEL LDL cholesterol, calculated 89 mg/dL (0-130 ) Not Available [facility] (Centralized Electronic Ordering - All Locations) Patient Can Go To The Location Of Their Choice, [id number] 07/03/2022 18:54:57 07/03/2007/03/2022 LIPID PANEL non HDL cholesterol (calc) 100 mg/dL (<160) Not Available [facility] ([facility] Ordering - All Locations) Patient Can Go To The Location Of Their Choice, [id number] 07/03/2022 18:54:57 07/03/2007/04/2022 ANTI- HEPAT ITIS C anti-hepatit is C (neg) normal NEGAT PETER Refer ence range : Negat peter This test was perfo rmed on the Abbot t Archi tect immun oassa y syste m. Not Available [facility] ([facility] Electronic Ordering - All Locations) Patient Can Go To The Location Of Their Choice, [id number] 07/04/2022 10:14:32 05/23/20 24 05/24/2024 CRP+H LA-B2 7 C-reactive protein, quant <1 mg/L 0-10 Not Available [facility] ([facility]) [address], [place], [address], 05/31/2024 17:14:46 05/23/20 24 05/31/2024 CRP+H LA-B2 [...] the Food and Drug Admin istra tion. [facility] CLIA ID Numbe r [id number] This test was perfo rmed using Polym erase Chain React ion (PCR) and Seque nce Speci fic Oligo nucle otide Probe s (SSOP ) techn ique. Seque nce Based Typin g (SBT) may be used as a suppl ement tonny serna necjoan rdz. If you have quest ions, patricia e call [facility] custo darell eliabobby ce at [phone] or email at [facility] [email or web address] om. Not Available [facility] ([facility]) [address], [place], [address], 05/31/2024 17:14:46 05/23/20 24 05/28/2024 ANTI- NUCLE AR AB BY IFA (RDL) anti-nuclear Ab by ifa (rdl) Positi ve negati ve abnormal Not Available [facility] [address] [place], [address], 05/31/2024 17:14:47 05/23/2005/28/2024 ANTI- NUCLE AR AB BY IFA (RDL) homogeneous pattern 1:80 <1:40 above high normal Not Available [facility] [address] [place] [address], [address], 05/31/2024 17:14:47 05/23/20 24 05/28/2024 ANTI- NUCLE AR AB BY IFA (RDL) nucleolar pattern WAD PRINTING 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 OPERATOR Not Available [facility] [address] [place], [address], 05/31/2024 17:14:47 05/23/20 24 05/28/2024 ANTI- NUCLE AR AB BY IFA (RDL) speckled pattern 1:40 <1:40 above high normal Not Available [facility] [address] [place] [address], [address], 05/31/2024 17:14:47 05/23/20 24 05/28/2024 ANTI- NUCLE AR AB BY IFA (RDL) centromere pattern WAD PRINTING MACHINE OPERATOR Not Available [facility] [address] [place] [address], [address], 05/31/2024 17:14:47 05/23/20 05/28/2024 ANTI- NUCLE AR AB BY IFA (RDL) spindle apparatus pattern WAD PRINTING MACHINE OPERATOR Not Available [facility] [address] [place] [address], [address], 05/31/2024 17:14:47 05/23/20 24 05/28/2024 ANTI- NUCLE AR AB BY IFA (RDL) nuclear membrane pattern WAD PRINTING MACHINE OPERATOR Not Available [facility] [address] [place] [address], [address], 05/31/2024 17:14:47 05/23/20 24 05/28/2024 ANTI- NUCLE AR AB BY IFA (RDL) midbody pattern WAD PRINTING MACHINE OPERATOR Not Available [facility] [address] [place] [address], [address], 05/31/2024 17:14:47 05/23/20 24 05/28/2024 ANTI- NUCLE AR AB BY IFA (RDL) nuclear dot pattern WAD PRINTING MACHINE OPERATOR Not Available [facility] [address] [place] [address], [address], 05/31/2024 17:14:47 05/23/20 24 05/28/2024 ANTI- NUCLE AR AB BY IFA (RDL) pcna pattern WAD PRINTING MACHINE OPERATOR Not Available [facility] [address] [place] [address], [address], 05/31/2024 17:14:47 05/23/20 24 05/28/2024 ANTI- NUCLE AR AB BY IFA (RDL) centriole pattern WAD PR[employer]ING MACHINE OPERATOR Not Available [facility] [address] [place] [address], [address], 05/31/2024 17:14:47 05/23/20 24 05/28/2024 ANTI- NUCLE AR AB BY IFA (RDL) note: Commen t MICHELE perfo rmed by Indir ect Fluor escen t Antib man (IFA) Not Available [facility] [address] [place] [address], [address], 05/31/2024 17:14:47 05/23/20 24 05/24/2024 RHEUM ATOID FACTO R (RF) rheumatoid factor (rf) <10.0 IU/mL <14.0 Not Available [facility] ([facility]) [address] [facility] [address], [place], [address], 05/31/2024 17:14:47 05/23/20 24 05/24/2024 LYME DISEA [...] is recom amita d. Not Available [facility] ([facility]) [address] [facility] [address], [place], [address], 05/31/2024 17:14:48 05/23/20 24 05/24/2024 URIC ACID uric acid 4.9 mg/dL 2.6-6. 2 normal Thera peuti c targe t for gout patie nts: <6.0 Not Available [facility] ([facility]) [address] [facility] [address], [place], [address], 05/31/2024 17:14:48 05/23/20 24 05/24/2024 SEDIM ENTAT ION RATE- WESTE RGREN sedimentatio n rate-westerg horacio 2 mm/HR 0-32 normal Not Available [facility] ([facility]) [address] [facility] [address], [place], [address], 05/31/2024 17:14:49 10/06/19 25 10/06/2024 TISSU E EXAM .note See Note Origi nal Order ing Provi fredy: CULLE N D WHITE [facility] - [address], [place], [place] [address] Not Available [address], [address], 10/10/2024 11:02:35 10/06/19 25 10/06/2024 TISSU E EXAM final diagnosis Skin, left superi or abdome n, excisi on: 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 Abdome n, abdome n: Label ed abdo men . Recei michael in forma rosalinda is a 0.8 x 0.5 cm orien andrew guzman-w harmony skin ellip se excis ed to depth of 0.5 cm. There is a sutur e and one tip desig natin g 9:00 per the requi sitio n. The epide rmis displ ays a 0.2 x 0.1 cm centr al guzman-b rown macul e, locat ed 0.1 cm from the 12:00 and 6:00 abad ns. The 9-12- 3 o'edmundo ck abad n is inked blue, the 3-6-9 o'edmundo ck abad n is inked black , and the epide rmis of the 3:00 tip is inked green . The speci men is quadr isect ed and entir erika submi tted into casse ttes as follo ws: 1, en face 9:00 and 3:00 tips (3:00 epide rmis inked green ), two piece s 2, trans verse cross -sect ions, conta ining entir e macul e, two piece s ANA Not Available [address], [address], 10/10/2024 11:02:35 10/06/19 25 10/06/2024 TISSU E EXAM disclaimer Unles s other cheung speci fied, all tissu e is 10% NB forma rosalinda fixed and paraf fin embed ded. Not Available [address], [address], 10/10/2024 11:02:35 06/17/20 23 06/17/2023 US, neck, soft tissu e No observ ation record ed. [facility] [address] [place] [address], [place], [address], 06/17/2023 12:21:26 09/23/20 23 09/23/2023 US, breas t, limit ed PROCED URE: [...] radiol ogist interp reting this exam. WSN: [id number] Orderi ng Physic nadiya: Dayanara Hudson Dictat ed By: Giancarlo Almeida MD Dictat ed Date/T lluvia: 2:46 pm Review ed By: Giancarlo Almeida MD Signed By: Giancarlo Almeida MD Signed Date/T lluvia: 2:46 pm Transc ribed By: OLIVER Transc ribed Date/T lluvia: 2:32 pm Patien t Class: Outpat ient [facility] (Outpt Imaging) [address] [place] [address], [address], 09/23/2023 21:29:41 09/23/20 23 09/23/2023 mm digit [...] radiol ogist interp reting this exam. WSN: [id number] Orderi ng Physic nadiya: Dayanara Hudson Dictat ed By: Giancarlo Almeida MD Dictat ed Date/T lluvia: 2:46 pm Review ed By: Giancarlo Almeida MD Signed By: Giancarlo Almeida MD Signed Date/T lluvia: 2:46 pm Transc ribed By: CSB Transc riptio n Date/T lluvia: 2:32 pm Birads : Patiarthur t Class[facility] [address] [place], [address], 09/23/2023 21:29:41 03/25/20 24 03/25/2024 mm digit [...] ensure stabil ity, at which time the patiarthur t is due for her annual mammog diallo. IMPRES TACOS: Persis tent probab ly benign focal asymme try in the right breast . RECOMM ENDATI ON: Follow -up diagno stic bilate ral mammog diallo in 6 months BI-RAD S: 3 (Proba abdi Benign ) Lay letter mailed to brandon nails I have person ally review ed the images and I agree with this report . WSN: [id number] Orderi ng Physic nadiya: Dayanara Belle Dictat ed By: Winston Neumann DO Dictat ed Date/T lluvia: 1:56 pm Review ed By: Criselda duran MD , Olivia Baker Signed By: Olivia Pablo MD Signed Date/T lluvia: 2:01 pm Transc ribed By: CSJesus Transc riptio n Date/T lluvia: 1:46 pm Birads : Brandon nails Class: Outpat ient [facility] (Outpt Imaging) [address] [place], [address], 03/25/2024 14:17:41 03/28/20 24 03/25/2024 MAMMO , diagn ostic , unila teral No observ ation record ed. [email or web address] [facility] [address] [place], [address], 03/29/2024 08:42:59 05/24/20 24 05/23/2024 XR, thora cic spine , 2 view [...] is no osseou s abnorm ality. WSN: [id number] Orderi ng Physic nadiya: Jourdan Meek Dictat ed By: Georgina Maldonado MD Dictat ed Date/T lluvia: 9:14 am Review ed By: Georgina Maldonado MD Signed By: Georgina Maldonado MD Signed Date/T lluvia: 9:14 am Transc ribed By: OLIVER Transc ribed Date/T lluvia: 9:12 am Patien t Class: Outpat ient [facility] (Outpt Imaging) [address] [place], [address], 05/25/2024 10:07:28 05/24/20 24 05/23/2024 XR, lumba r spine Examin ation: Lumbar [...] TACOS: Degene rative disc diseas e. WSN: [id number] Orderi ng Physic nadiya: Jourdan Meek Dictat ed By: Georgina Maldonado MD Dictat ed Date/T lluvia: 9:16 am Review ed By: Georgina Maldonado MD Signed By: Georgina Maldonado MD Signed Date/T lluvia: 9:16 am Transc ribed By: OLIVER Transc ribed Date/T lluvia: 9:14 am Patien t Class: Outpat ient [facility] (Outpt Imaging) [address] [place], [address], 05/25/2024 10:07:28 05/24/20 24 05/23/2024 XR, cervi [...] Otherw ise unrema rkable examin ation. WSN: [id number] Orderi ng Physic nadiya: Jourdan Meek Dictat ed By: Harriett Veras MD Dictat ed Date/T lluvia: 9:46 am Review ed By: Harriett Veras MD Signed By: Harriett Veras MD Signed Date/T lluvia: 9:46 am Transc ribed By: OLIVER Transc ribed Date/T lluvia: 9:41 am Patien t Class: Outpat ient [facility] ([facility]) [address] , [place], [address], 05/25/2024 10:07:29 10/04/20 24 10/04/2024 mm digit al mammo bilat eral PROCED URE: MM Digita l Mammo Bilate ral CLINIC AL INDICA TION: 39 years old Female for six-mo nth follow -up of focal asymme try RIGHT breast and screen ing of the rest of the breast s bilate rally. COMPAR SMILEY: Bilate ral digita l mammog emmanuel Decemb er 2022 and diagno stic RIGHT mammog diallo March 25, 2024. TECHNI QUE: Full field digita l CC and MLO 3D tomosy nthesi s images of both breast s were acquir ed. Comput er -aided detect ion (CAD) was utiliz ed in the interp retati on of this study. Bilate ral exagge rated CC views also obtain ed. DENSIT Y: The breast tissue is hetero geneou sly dense, which may obscur e masses . FINDIN GS: Asymme tric breast tissue again seen and unchan ged upper outer quadra nt RIGHT breast the nodula r parenc hymal patter n is stable elsewh ere. Small number s of scatte red, benign appear ing microc alcifi cation s are noted bilate rally. No masses , suspic ious groups of microc alcifi cation s, areas of dedra ectura l distor tion, skin thicke elli or nipple retrac tion are seen in either breast . IMPRES TACOS: 1. No mammog raphic eviden ce of malign leticia. RECOMM ENDATI ON: Annual mammog raphic screen ing BI-RAD S 2 - Benign . Lay letter mailed to brandon [facility]. WSN: [id number] Orderi ng Physic nadiya: Yoshi CONTRERAS, Dayanara wDyer Dictat ed By: Carlos Ivory MD Dictat ed Date/T lluvia: 3:06 pm Review ed By: Carlos Ivory MD Signed By: Carlos Ivory MD Signed Date/T lluvia: 3:06 pm Transc ribed By: CSB Transc riptio n Date/T lluvia: 2:58 pm Birads : Brandon [facility] Class: Outpat ient [facility] ([facility]) [address] [place] [address], [address], 10/04/2024 15:16:38 Result Notes None recorded. Problems Name Problem SNOMED Code Status Onset Date Resolution Date Notes Provider Name and Address Organization Details Recorded Time Acne 48596373 Active seen for acne Not Available [facility] 4 23:31:38 Insomnia 016620460 Active zolpidem prn Not Available [facility] 4 23:31:38 Asthma 103071904 Active 2017 Not Available [facility] 1 09:45:17 Visual impairmen t 561230713 Active Not Available [facility] 4 23:31:39 Lymphaden opathy 57345617 Active Not Available [facility] 4 23:31:39 Foot pain 71245368 Active seen at [facility] Not Available [facility] 4 23:31:39 Celiac disease 805881526 Active 2016 RUSS Hernadez, [facility] 4 13:57:28 Allergic rhinitis 57098199 Active 2015 Followed by an almond roaster Not Available [facility] 4 23:31:39 Eczema 74692830 Active 2015 Not Available [facility] 4 23:31:39 Pain in right knee Active 2016 Followed at [facility]. Medial meniscal tear. Not Available [facility] 4 23:31:39 Squamous cell carcinoma of skin 764889784 Active 2017 RUSS Hernadez, [facility] 4 13:57:28 Low back pain 578239994 Active 2017 Not Available [facility] 4 23:31:38 Lateral epicondyl itis of right humerus 57497487998 9107 Active 2020 Injected by rheum Not Available [facility] 4 23:31:39 Basal cell carcinoma of back 671114299 Active 2021 Not Available [facility] 4 23:31:39 History of SARS-CoV- 2 18333006045 9711664 Active 2021 Not Available [facility] 4 23:31:38 Malignant melanoma 640083382 Active 2022 Mid upper back; seen by Dr Ziegler Not Available [facility] 4 23:31:39 Mass of neck 248772522 Active 2021 Possible lipoma vs cyst but given skin cancer hx this will be removed by surgery. Not Available [facility] 4 23:31:38 Exacerbat ion of moderate persisten t asthma 285048115 Active 2022 Not Available [facility] 4 23:31:39 Moderate persisten t asthma 454510185 Active 2022 Not Available [facility] 4 23:31:39 Acute bronchiti s 28504541 Active 2022 Not Available [facility] 4 23:31:38 Fatigue 32541862 Active 2022 Not Available [facility] 4 23:31:39 Hyperlipi demia 16438108 Active 2022 Not Available [facility] 4 23:31:39 Breast lump 75554606 Active 2022 Not Available [facility] 4 23:31:39 Backache 136553309 Active 2023 Rafael Meek PA-C [address], [place], [address] , [facility] 4 12:49:36 Fibromyal denise 966824563 Active 2023 Seen by rheum, Dr Parnell for multiple joint pains and diagnosed with fibromyal denise. Referred back to us for treatment . Grace Engle MD [address], [place], [address] , [facility] 4 15:59:19 Dysplasti c nevus of skin 548770452 Active 2017 Danielle Murphy LPN [facility] 4 13:57:28 Problem Notes None recorded. Procedures Surgical History Date Name Laterality Status Provider Name and Address Organization Details Recorded Time 12/23/19 Date of Last Pap Smear completed Clara Burgos [facility] 01/02/2025 14:25:49 03/25/20 24 Most Recent Mammogram completed Mary Mcfadden [facility] 03/29/2024 08:42:49 11/05/19 24 screening for malignant neoplasm of cervix completed Mary Mcfadden [facility] 11/07/2023 09:48:23 07/02/20 23 excision of mass of neck completed Mary Mcfadden [facility] 07/02/2023 12:49:06 01/01/20 23 excision of melanoma completed Danielle Murphy LPN [facility] 09/03/2023 13:15:31 07/29/20 21 injection completed Tatyana Suazo [facility] 07/31/2021 09:16:57 05/06/20 21 Orthopedic Surgery completed Grace Engle MD [address] [facility] [place], [address], [facility] 06/24/2021 14:41:58 10/05/19 12 Orthopedic Surgery completed Grace Engle MD [address] [facility] [place], [address], [facility] 02/27/2015 14:13:15 05/05/20 07 Appendectomy completed aPt Harper MA [facility] 06/24/2021 14:16:33 10/05/19 04 Orthopedic Surgery completed Grace Engle MD [address] [facility] [address] [facility] [place], [address], [facility] 02/27/2015 14:13:15 07/14/19 97 Tonsillectomy completed Judy Wilburn MA [facility] 07/09/2022 13:02:21 myringotomy and insertion of tympanic ventilation tube completed Jocelyne davey MA [facility] 08/24/2020 13:23:01 Imaging Results None recorded. Procedure Notes None recorded. Medical Equipment None Reported. Allergies Allergen ID Allergen Name Allergen Category Reaction Reaction Severity Criticality Documentation Date Start Date Code Code System Note Provider Name and Address Organization Details Recorded Time 96310 wheat gluten extract food Not available Not available Not available 07/09/2022 59664 81 RxNorm DARRON Robert [facility] 2 13:02:20 63816 Gluten (substanc e) food,medi cation Not available Not available Not available 05/02/20242019 25700 004 SNOMED DARRON Yusuf [facility] 4 15:45:11 78292 povidone- iodine medicatio n Not available Not available Not available 09/08/20242023 8611 RxNorm Danielle Caporale, [employer] null, [facility] 4 13:56:59 68011 wheat bran extract food,medi cation Not available Not available Not available 09/08/20242018 22987 46 RxNorm Danielleseferino Mace, [employer] MANA[employer] null, [facility] 4 13:56:59 25941 latex environme nt,medica tion itching Not available Not available 09/08/20242022 21253 91 RxNorm Danielleseferino Mace, [employer] MANAGER null, [facility] 4 13:56:59 Medications Name Sig Start [...] MOUTH DAILY FOR 14 DAYS POST OPERATIV ERIKA 06/24 completed Not Available Not Available Not [...] Not Available Not Available Sprintec (28) 0.25 mg-0.035 mg tablet 09/17 completed Not Available Not [...] Available Not Available Not Available Flucelvax Quad 2026-8303 (PF) 60 mcg (15 mcg x 4)/0.5 mL IM syringe 04/20 completed Not Available Not Available Not Available Vitals Date Recorded Body height Body mass index (BMI) Body weight Oxygen saturation Oxygen saturation in Arterial blood by Pulse oximetry Heart rate Body temperature Systolic blood pressure Diastolic blood pressure Provider Name and Address Organization Details Last Updated DateTime 4 170.18 cm 21.5 kg/m2 06267.2 5 g 98 % 98 % 66 /min 98.5 [degF] 99 mm[Hg] 65 mm[Hg] Alexandria Luna MA [facility] 4 15:50:44 Date Recorded Body height Body mass index (BMI) Body weight Heart rate Oxygen saturation Oxygen saturation in Arterial blood by Pulse oximetry Body temperature Systolic blood pressure Diastolic blood pressure Provider Name and Address Organization Details Last Updated DateTime 2 167.64 cm 21.2 kg/m2 20470.4 g 64 /min 98 % 98 % 98.24 [degF] 113 mm[Hg] 74 mm[Hg] Judy Wilburn MA [facility] 2 13:10:19 Date Recorded Body height Provider Name an d Address Organization Details Last Updated DateTime 08/16/2024 170.18 cm Eleazar guevara MA [facility] 08/16/2024 13:03:57 Date Recorded Body height Body mass index (BMI) Body weight Heart rate Oxygen saturation Oxygen saturation in Arterial blood by Pulse oximetry Body temperature Systolic blood pressure Diastolic blood pressure Provider Name and Address Organization Details Last Updated DateTime 3 170.18 cm 21.1 kg/m2 05315.9 7 g 66 /min 96 % 96 % 99.5 [degF] 112 mm[Hg] 69 mm[Hg] Danielle Murphy LPN [facility] 3 13:12:19 Date Recorded Body height Body mass index (BMI) Body weight Heart rate Oxygen saturation Oxygen saturation in Arterial blood by Pulse oximetry Body temperature Systolic blood pressure Diastolic blood pressure Provider Name and Address Organization Details Last Updated DateTime 4 170.18 cm 21.4 kg/m2 20456.6 6 g 61 /min 98 % 98 % 99.2 [degF] 113 mm[Hg] 73 mm[Hg] Danielle Murphy LPN [facility] 4 13:56:30 Social History Question Answer Notes LastModified by Organizat ion Details LastModified Time Tobacco Smoking Status Never Smoker Heaven [email or web address], [facility] 02/27/2015 13:58:54 Do You Have An Advance Directive? Yes Information not available 07/09/2022 Is Blood Transfusion Acceptable In An Emergency? Yes [email or web address] Information not available 03/04/2016 What Is Your Level Of Caffeine Consumption? Moderate Coffee Information not available 02/27/2015 How Much Tobacco Do You Chew? None Information not available 08/24/2020 What Type Of Diet Are You Following? GLUTENFREE Information not available 06/24/2021 Which Illicit Or Recreational Drugs Have You Used? None [email or web address] enrique Information not available 03/04/2016 Live Alone Or With Others? With Others 2 Children And Her Boyfriend And Sometimes His Daughter Born 2009. Children No Longer See Their Biological Father But This May Change In The Future. Information not available 07/09/2022 Do You Take Precautions To Prevent Distracted Driving? Yes [email or web address] Information not available 03/04/2016 How Often Do You Need To Have Someone Help You When You Read Instructions, Pamphlets, Or Other Written Material From Your Doctor Or Pharmacy? Never Information not available 03/04/2016 Have You Served In The ? No [email or web address] Information not available 02/17/2018 Have You Or [...] Health Care Provider Or Emergency Responder? No [facility] Information not available 06/22/2020 To The Best [...] Seat Belt Or Car Seat Routinely? Yes [email or web address] Information not available 06/24/2021 Seat Belts Used Routinely Yes Information not available 07/09/2022 Are You Sexually Active? Yes [email or web address] Information not available 03/04/2016 Smoke Alarm In Home Yes Information not available 07/09/2022 Do You Have Smoke And Carbon Monoxide Detectors In Your Home? Yes Information not available 06/24/2021 At What Age Did You Start Smoking Tobacco? 0 Information not available 09/04/2020 Are You Passively Exposed To Smoke? No [email or web address] Information not available 06/24/2021 How Much Tobacco Do You Smoke? No [email or web address] Information not available 06/24/2021 Do You Use Sunscreen Routinely? Yes Information not available 03/04/2016 How Many Years Have You Smoked Tobacco? 0 Information not available 09/04/2020 Sex: Unknown Functional Status Question Answer Note LastModified by Organizat ion Details LastModified Time Do you use any illicit or recreational drugs? No Information not available 07/09/2022 Do you or have you ever used any other forms of tobacco or nicotine? No Information not available 07/09/2022 What is your level of alcohol consumption? Occasional Rare Information not available 02/27/2015 Do you or have you ever used smokeless tobacco? Never used smokeless tobacco Information not available 08/24/2020 Are you currently employed? Yes Information not available 02/27/2015 Are you able to walk? YESWOREST Information not available 07/09/2022 Are you able to care for yourself? 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 [email or web address] Information not available 09/03/2023 Do you or have you ever used e-cigarettes or vape? Never used electronic cigarettes Information not available 07/09/2022 What is your exercise level? Moderate [email or web address] Information not available 06/24/2021 Mental Status None recorded. Family History Relationship Description Onset Age of this Age Resolved Age Notes LastModified by Organization Details LastModified Time Mother Essential hypertension Not available 02/2022 13:02:20 Mother Hypercholest erolemia ajultluis enrique Not available 03/04 13:31:07 Mother Kidney disease [email or web address] Not available 2020 14:16:09 Mother Disorder of thyroid gland Not available 2021 13:02:20 Mother Anemia 65 Not available 09/08/2024 14:02:37 Mother B12 deficiency monitoring 65 [email or web address] Not available 02/2024 14:02:55 Father Orthopedic assessment both hips replac ed Not available 07/09/2022 13:02:20 Father Carcinoma of prostate Not available 2021 13:02:20 Unspecified Relation Harmful pattern of use of alcohol Not available 2020 14:16:09 Medical History Condition Response Eczema Y Asthma Y Allergies Y Gynecological History Statement/Question Response Date of Last Colonoscopy Sexually Active? Y Menses Monthly N Date of Last Pap Smear 12/22/2024 Age at Menarche 10 Current Control Method IUD Most Recent Mammogram 03/25/2024 LMP Approximate Obstetrics History GPAL:G 0 P 0 0 0 0 Immunizations Vaccine Type Date Status Note Provider Nam sotero and Address Organization Details Recorded Time Influenza, split virus, quadrivalent, preservative 8 completed RUSS Hernadez, [facility] 09/03/2023 13:12:34 Influenza, MDCK, quadrivalent, preservative 8 completed Danielle Murphy LPN null, [facility] 09/03/2023 13:12:34 Tdap 8 completed Judy Wilburn MA null, [facility] 07/09/2022 13:13:10 Influenza, split virus, trivalent, PF 0 completed Tatyana Suazo null, [facility] 01/16/2021 09:58:46 Influenza, split virus, trivalent, preservative 3 completed Eleazar Cosme MA null, [facility] 08/16/2024 13:02:52 COVID-19, mRNA, LNP-S, PF, 100 mcg/0.5mL dose or 50 mcg/0.25mL dose 1 completed Judy Wilburn MA null, [facility] 07/09/2022 13:13:10 COVID-19, mRNA, LNP-S, PF, 100 mcg/0.5mL dose or 50 mcg/0.25mL dose 1 completed Pat Harper MA null, [facility] 06/24/2021 14:28:16 Influenza, split virus, quadrivalent, PF 9 completed Judy Wilburn MA null, [facility] 07/09/2022 13:13:10 Influenza, split virus, quadrivalent, PF 0 completed Elias [place] null, [facility] 06/22/2020 13:55:41 Influenza, split virus, quadrivalent, PF 2 completed Grace Engle MD [address], [address], [facility] 07/09/2022 16:51:28 Past Encounters Encounter ID Performer Location Encounter Start Date Encounter Closed Date Diagnosis/Indication Diagnosis SNOMED-CT Code Diagnosis ICD10 Code Diagnosis Note [id number] Grace Engle MD Main Office [address] [address] [place] [address] 02/27/2015 13:46:50 02/27/2015 14:31:50 Adult health examination 902739424 Visual impairment 494125015 [id number] Grace Engle MD Main Office [address] [address] [place] [address] 03/30/2015 11:35:06 03/30/2015 12:04:18 Lymphadenopathy 85039703 appear benign; she will monitor and will do lab work today that was ordered at her initial visit here. Adult heal th examination 191957196 [id number] Cassandra Meek PA-C Main Office [address] [address] [place] [address] 11/13/2015 10:31:01 11/13/2015 11:30:36 Foot pain 90585244 M79.673 L. lateral foot pain. ? tiny ganglion cyst in the 4th MCP. Also, chronic ankle sprain. Pt. is advised to have XRAy and see an orthopedis t for further eval. as she continues running on a reg. basis. [id number] Grace Engle MD Main Office [facility] [address] [place] [address] 03/04/2016 13:17:08 03/04/2016 14:10:42 Administration of diphtheria, pertussis, and tetanus vaccine 801639984 Z23 Acne 27964654 L70.9 on spironolac tone [id number] Grace Engle MD Main Office [address] [place] [address] [place] [address] 09/17/2017 12:48:01 09/17/2017 13:42:15 Pain in right knee 7208168813 41825 M25.561 Tear of me dial meniscus of knee 934220467 S83.221A [id number] Grace Engle MD Main Office [address] [address] [place] [address] 02/17/2018 12:57:24 02/17/2018 14:21:48 Adult health examination 540898122 Z00.00 Administra tion of viral vaccine 60218806 Z23 Insomnia 927924405 G47.0 0 Acute sinusitis 26484569 J01.90 [id number] Grace Engle MD Main Office [address] [facility] [address] [place] [address] 06/02/2018 11:22:54 06/02/2018 12:25:18 Low back pain 156178556 M54.5 She will try home exercises and will make an appointmen t with a chiropract or and will send a message if it is not improving and then we will do an ortho referral. Lumbar arthritis 8759299 01 M46.96 [id number] Grace Engle MD Main Office [address] [address] [place] [address] 04/20/2019 14:17:58 04/20/2019 15:17:10 Adult health examination 326358214 Z00.00 UTD with [employer] care and immunizati ons. Malaise and fatigue 2717 40386 R53.83 This is multifacto rial and probably related to poor sleep, stress in dealing with impending divorce Insomnia 627555758 G47.0 0 [id number] Haider Swann MD Main Office [address] [facility] [address] [place] [address] 01/12/2020 10:13:21 01/12/2020 14:28:20 Orthostatic hypotension 55717539 I95.1 rec to sig. 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 Muscle spa sm of cervical muscle of neck 4391296195 04 M62.838 rec warm compress to neck, HEP, prn m relaxer hs Acne 95279896 L70.9 fortunatel y has not used spironolac tone over past wk (could have made her above sxs worse), but advised her to call her derm to consider a lower dose or even a change in her med [id number] Grace Engle MD Main Office [address] [facility] [address] [place] [address] 06/22/2020 13:07:43 06/22/2020 13:58:06 Adult health examination 981967501 Z00.00 UTD with [employer] care and immunizati ons. Needs infl uenza immunization 770370019 Z23 Insomnia 274965035 G47.0 0 [id number] David Conte MD [facility] [address] [facility] [address] [place] [address] 08/24/2020 12:45:28 08/24/2020 15:04:05 Counseling 209653294 Z71.9 Health advice, education or counseling done for COVID 19 Fatigue 38523175 R53.83 [id number] Grace Engle MD Main Office [address] [address] [place] [address] 06/24/2021 14:07:15 06/24/2021 15:04:19 Adult health examination 590459164 Z00.00 UTD with [employer] care and immunizati ons. Hyperlipidemia 39208355 E78.5 Hepatitis C screening 39 6456372 Z11.59 Lateral ep icondylitis of right humerus 6117770600 24861 M77.11 This has been a problem for months. It responds to NSAIDs but hasn't resolved. [id number] Grace Engle MD Main Office [address] [place] [address] 07/09/2022 12:58:49 07/09/2022 13:53:42 Adult health examination 638247106 Z00.00 UTD with [employer] care and immunizati ons. I advised her to get the bivalent COVID vaccine. Needs infl uenza immunization 533260731 Z23 History of SARS-CoV-2 29 54785261 62497993 Z86.16 Fully vaccinated when she became infected. Insomnia 806221171 G47.0 0 Uses ambien sparingly. Acne 64039004 L70.9 Will reduce her dose of spironolac tone from 100 to 50 mg because of problems with hypotensio n. She will call if her symptoms persist and we will reduce it further to 25 mg. She will discuss alternativ e treatments with Dr Ziegler. [id number] Grace Engle MD Main Office [address] [address] [place] [address] 09/03/2023 13:01:09 09/03/2023 14:08:29 Adult health examination 046419551 Z00.00 HM UTD Insomnia 353013648 G47.0 0 Uses ambien sparingly. Acne 76789000 L70.[address] Ziegler Exacerbtalisha on of moderate persistent asthma 675276023 J45.41 likely exacerbate d by having covid a few weeks ago- will start pred burst, refill albuterol, start symbicort twice daily. Moderate p ersistent asthma 479796463 J45.40 Acute bronchitis 2208914 2 J20.9 zpak as directed x full 5 days. Fatigue 60216499 R53.83 Hyperlipidemia 70967661 E78.5 Screening for malignant neoplasm of breast 506068271 Z12.39 due for mammo next month, on breast exam lump noted left breast, will order US and mammo Malignant melanoma 38226 [address] ziegler. [id number] Haider Swann MD Main Office [address] [facility] [address] [facility] [address] 05/02/2024 15:39:58 05/02/2024 16:46:15 Pain of multiple joints 73749840 M25.50 check labs - consider rheum if + Backache 031881654 M54.9 check xrays - consider PMR if sig findingsco nt motrin, but consider change to alevenot sleeping well - trial c gbn hs - 1 hr accont HEP [id number] Haider Swann MD Telehealt h [address] [facility] [address] [place] [address] 08/16/2024 12:39:24 08/16/2024 14:10:10 Fibromyalgia 891955908 M79.7 check labs - consider rheum if + 11.24 - seen by 2 rheums - pending f/u c [facility] rheum in 2-3 wksseen by AT[facility] - dx'd c fibro - f/u prn, see below - cont gbn 300mg qhs Fatigue 66466252 R53.83 check metabolic w/u, and labs for upcoming PE Hyperlipidemia 52081909 E78.5 Impaired f asting glycemia 851958145 R73.01 [id number] Grace Engle MD Main Office [address] [facility] [address] [place] [address] 09/08/2024 13:21:49 09/08/2024 14:32:50 Adult health examination 835702658 Z00.00 HM UTD Insomnia 983634414 G47.0 0 Uses ambien sparingly. Acne 37295066 L70.[address] Ziegler Moderate p ersistent asthma 235215362 J45.40 Does not use a maintenanc e inhaler and rarely uses her rescue inhaler. Hyperlipidemia 77996374 E78.5 Malignant melanoma 89[address] Ziegler who is responsibl e for her follow ups and monitoring . Fibromyalgia 103085954 M 79.7 Followed by raj restrepo at [facility] Low back pain 299797863 M54.50 Not currently an active problem. Health Concerns Section Related Observation LastModified by Organization Detai ls LastModified Time None Recorded Concern Status LastModified by Organization Details LastModified Time None Recorded Advance Directives Directive Y: Payers Encounter Date Sequence Insurance Name Policy Number Policy [place] Covered Member ID [place] Member ID Guarantor Name 07/09/2022 1 [place] [facility] Yaquelin A Marylu [id number] Yaquelin Loyao 09/03/2023 1 [place] [facility] Yaquelin A Marylu [id number] Yaquelin Maderazzo 05/02/2024 1 [place] [facility] Yaquelin A Marylu [id number] Yaquelin Worrell Marylu 08/16/2024 1 [place] [facility] Yaquelin A Marylu [id number] Yaquelin A Marylu 09/08/2024 1 [place] [facility] Marylu [id number] Yaquelin Valero Notes Date Note Type Note Provider Name and Address Organization Details Recorded Time 07/09/2022 text/html Generic HPI TemplateReported bypatient.Notes:She is fully vaccinated against COVID and had an infection a few months ago and received steroids because of SOB. She has since recovered completely.Very busy with work and family. Has fatigue often. Grace Engle MD [address] [facility] [address], [place], [id number], [facility] [place] 07/09/2022 16:53:33 09/03/2023 text/html Generic HPI TemplateReported bypatient.Notes:Presen ts for PE.had cold sx, loses her voice a lot, tested + for covid early august, no paxlovid, felt better after 10-12 days. Feeling winded, SOB, using her inhaler every 4 hours. Coughing again the last couple days is productive. 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 fibromyalgia from [facility]reviewed 2 recent consults in detail c pt ([facility] & [facility])has f/u c [facility] rheum in 2 wkshas increased gbn to 300mg qhs and naproxen 1-2 times/day Dang mcginnis, [facility] [place] 08/26/2024 14:02:45 09/08/2024 text/html Generic HPI TemplateReported bypatient.Notes:Presen ts for PE.Has been seeing rheum for multiple joint pains and diagnosed with fibromyalgia.Sleep has improved some.Had initial COVID vaccine series but no subsequent boosters.UTD with tetanus and not currently getting a flu vaccine. Grace Engle MD [address] [facility] [address], [place], [phone], [facility] 09/12/2024 12:35:36 OBGyn Episode No OBEpisode recorded.
== END 2025-03-08 13:56 | disposition home or self-care (01) ==
LOC: HO.RHE 13:22
PROVIDERS: PCP Internal Medicine; Visit Provider Student in an Organized Health Care Education/Training Program
DX: M79.7 Fibromyalgia (principal); M53.3 Sacrococcygeal disorders, not elsewhere classified
CPT/HCPCS: 99213

== ENCOUNTER → 2025-03-08 13:22 | Outpatient (BNVA) | payer MEDICAID, SELFPAY | PROVIDERS: PCP Internal Medicine; Visit Provider Student in an Organized Health Care Education/Training Program | DX: M79.7 Fibromyalgia (principal); M53.3 Sacrococcygeal disorders, not elsewhere classified | CPT/HCPCS: 99212 ==